=== PATIENT | female | born 1945 | race Caucasian/White ===

== ENCOUNTER 2018-10-10 14:15 | Inpatient (IN) | payer OTHER, BC ==
[2018-10-10] MEDS ORDERED: SODIUM CHLORIDE 1,000 ML IV ONE (15:05)
[2018-10-10 15:08] VITALS: BMI 38.0
--- NOTE | 2018-10-10 15:53 | PDOC ---
Documentation entered by Rahul Nath SCRIBE, acting as scribe for Hermilo Matos MD. Hermilo Matos MD: This documentation has been prepared by the staciaePortillo Elijah, SCRIBE, under my direction and personally reviewed by me in its entirety. I confirm that the documentation accurately reflects all work, treatment, procedures, and medical decision making performed by me. History of Present Illness - General Chief Complaint: Lightheaded Stated Complaint: DIZZY, SOB, FACE FLUSHING, FAINTING, INCONTINENCE Time Seen by Provider: 10/10/18 14:37 History Source: Patient Exam Limitations: No Limitations - History of Present Illness Initial Comments: 10/10/18 15:17 Patient is a 73 year old female with a significant past medical history of Gout , Arthritis, Hypothyroidism, Irritable Bowel movement, AFIB (Eliquis), HTN who presents to the ED with Syncope. Pt reports an episode of syncope this morning when she got up, flight lightheaded, felt a trickle of urine, felt dizzy/ hot, diaphoretic, and syncopized this morning as well as last wednesday. Pt denies any associated preceding headache, cp, sob, abd pain, back pain, neck pain. She notes on Wed, she struck her back on the corner of a table and caused a bruise/ abrasion on her R back. Pt currently feels improved but feels generally weak. Pt denies any blood per rectum, melena, headache, cp, abd pain, f/c, cough, vision changes, palpitations, diarrhea, focal weakness. Allergies: Gluten, Sulfa, Epinephrine PCP: Dr. Mackay Cardiologists: Dr. Kaye Past History - Past Medical History Allergies/Adverse Reactions: Allergies Allergy/AdvReac Type Severity Reaction Status Date / Time gluten Allergy Unknown Verified 10/10/18 15:00 Sulfa (Sulfonamide Allergy Unknown Verified 10/10/18 15:00 Antibiotics) epinephrine AdvReac Mild Verified 10/10/18 15:00 Home Medications: Ambulatory Orders Amlodipine Besylate 5 mg PO DAILY 10/10/18 Apixaban [Eliquis] 5 mg PO BID 10/10/18 Clonidine Patch [Catapres Tts Patch -] 0.3 mg TD WEEKLY 10/10/18 Lisinopril [Prinivil -] 40 mg PO DAILY 10/10/18 Torsemide [Demadex] 10 mg PO DAILY 10/10/18 Review of Systems - Review of Systems Comments:: 10/10/18 15:17 Constitutional - +genearlized weakness in legs. Pt denies Fever, Chills HEENT: denies vision changes, sore throat Respiratory:+SOB (resolved) Denies cough, hemoptysis Cardiac: +lightheadedness denies chest pain, palpitations, , leg swelling Abd/GI: denies abd pain, nausea, vomiting, blood per rectum, melena, diarrhea : denies dysuria, frequency, discharge Musculskelatal - +back pain skin - denies erythema, rash neurological: denies headache, numbness, focal weakness, tingling, ataxia, weakness hematologic: denies anemia, easy bruising, easy bleeding *Physical Exam - Vital Signs Last Vital Signs Temp Pulse Resp BP Pulse Ox 98.3 F 60 16 150/58 L 100 10/10/18 14:35 10/10/18 14:35 10/10/18 14:35 10/10/18 14:35 10/10/18 14:35 - Physical Exam Comments: 10/10/18 15:05 GENERAL: The patient is awake, alert, and fully oriented, Nontoxic - in no acute distress. HEAD: Normocephalic, atraumatic. EYES: extraocular movements intact, sclera anicteric, conjunctiva clear. ENT: Normal voice, Moist mucous membranes. NECK: Normal range of motion, supple LUNGS: Breath sounds equal, clear to auscultation bilaterally. No wheezes, no rhonchi, no rales. HEART: Regular rate and rhythm, normal S1 and S2 without murmur, rub or gallop. BACK: no midline cervical thoracic or lumbar, moderate tenderness to palpation in the right para lumbar paraspinal region with contusion and superficial abrasion ABDOMEN: Soft, nontender, No guarding, no rebound. No CVA tenderness EXTREMITIES: Normal range of motion, +1 pitting edema bl NEUROLOGICAL: No facial assymetry, Normal speech, moving all 4 extremities spontaneously and symmetrically PSYCH: Normal mood, normal affect. SKIN: Warm, Dry, normal turgor, Heart Score/ECG Review - ECG Impressions Comment:: 10/10/18 15:53 Twelve-lead EKG was performed and reviewed by me. Irregularly irregular rate of [address] wave changes abnormal r wave pogression ED Treatment Course - LABORATORY CBC & Chemistry Diagram: 10/10/18 15:50 10/10/18 15:50 - RADIOLOGY Radiology Studies Ordered: Category Date Time Status CHEST X-RAY PORTABLE* [RAD] Stat Radiology 10/10/18 15:04 Ordered Medical Decision Making - Critical Care Time Total Critical Care Time (minutes): 45 Critical Care Statement: The care of this patient involved high complexity decision making to prevent further life threatening deterioration of the patient 's condition and/or to evaluate & treat vital organ system(s) failure or risk of failure. - Medical Decision Making 10/10/18 15:07 73y F hx of gout, arhthritis, hypothyroidism, afib (on eliquis) htn, presents with recurrent syncope - episodes of feeling lightheaded/nauseaus/sweaty/sob, lasting for seconds, but 3 x associated with syncope without associated preceeding cp, abd pain, back pain, headache, melena/bpr. Currently pt feels generally weak but without other complaints ddx syncpe- anemia, metabolic derangement, arrythmia, acs, vasovagal episode pt placed on order caller will ck labs to r/o anemia, metabolic derangement tropx ekg to screen for acs brandon give fluids will erassess 10/10/18 17:50 the patient's lab work was reviewed noted for leukocytes, BUN/creatinine suggestive of prerenal azotemia - will continue to fluid resuscitate While on the monitor the patient heart rate witnessed to fluctuate into the high 30s and 40s although pt was without complanits lying in bed at this time 10/10/18 18:[address] walton due to concern for sick sinus, recommend transfer to [facility] 10/10/18 18:10 pts clonadine patch removed 10/10/18 18:[address] walton and dr. zazueta will transfer to [facility] Telemetry for further monitoring/workup Case discussed in detail with admitting physician including history, physical exam and ancillary studies. Admitting physician has assumed care for the patient, will follow all pending diagnostics and will complete the evaluation and treatment. *DC/Admit/Observation/Transfer Diagnosis at time of Disposition: Bradycardia Afib Qualifiers: Atrial fibrillation type: persistent Qualified Code(s): I48.1 - Persistent atrial fibrillation Syncope Qualifiers: Syncope type: unspecified Qualified Code(s): R55 - Syncope and collapse - Discharge Dispostion Condition at time of disposition: Good Decision to Admit order: Yes - Referrals Referrals: Veto Mackay MD [Primary Care Provider] - - Patient Instructions - Post Discharge Activity
[2018-10-10 16:18] LABS: HEMATOCRIT 36.9 % (32.4-45.2); HEMOGLOBIN 12.3 GM/dl (10.7-15.3); MCH 34.7 pg (25.7-33.7); MCHC 33.4 g/dl (32.0-36.0); MEAN PLT VOLUME 10.2 fl (7.5-11.1); PLATELET COUNT 174 K/MM3 (134-434); RBC 3.55 M/mm3 (3.60-5.2); RDW 13.5 % (11.6-15.6); WHITE BLOOD COUNT 15.5 K/mm3 (4.0-10.8)
[2018-10-10 16:25] LABS: INR 1.99 (0.82-1.09)
[2018-10-10 16:26] LABS: ALBUMIN 4.2 g/dl (3.4-5.0); BILIRUBIN,TOTAL 1.3 mg/dl (0.2-1); CALCIUM 9.5 mg/dl (8.5-10); CREATININE 1.6 mg/dl (0.55-1.3); POTASSIUM 4.1 mmol/L (3.5-5.1); TOT PROT 6.9 g/dl (6.4-8.2)
[2018-10-10] MEDS ORDERED: ACETAMINOPHEN 325 MG TABLET (FP) PO ONE (16:32)
[2018-10-10] MEDS ORDERED: ACETAMINOPHEN 325 MG TABLET (FP) ONE (16:37)
[2018-10-10 17:07] LABS: PLATELET ESTIMATE ADEQUATE
--- NOTE | 2018-10-10 20:17 | CON.CARD ---
Consult Consult Specialty:: Cardiology Referred by:: Dr. Hermilo Matos Reason for Consultation:: Syncope, afib - History of Present Illness Chief Complaint: Syncope, afib History of Present Illness: Patient is a 73 year old female with a significant past medical history of Gout , Arthritis, Hypothyroidism, Irritable Bowel movement, AFIB on Eliquis, HTN who presents to the ED with Syncope. Pt reports an episode of syncope this morning when she got up, felt lightheaded, bladder incontinece, flushing, diaphoretic, and syncopized this morning as well as last wednesday. Pt denies any associated preceding palpitations, cp, sob, abd pain, back pain, neck pain. She notes on Wed, she struck her back on the corner of a table and caused a bruise/abrasion on her R back. Pt currently feels improved but feels generally weak. Pt denies any blood per rectum, melena, headache, cp, abd pain, f/c, cough, vision changes , palpitations, diarrhea, focal weakness. Noted to be in slow afib 40s. Allergies: Gluten, Sulfa, Epinephrine PCP: Dr. Mackay Cardiologists: Dr. Kaye - History Source History Provided By: Patient Limitations to Obtaining History: No Limitations - Alcohol/Substance Use Hx Alcohol Use: No - Smoking History Smoking history: Never smoked Home Medications - Allergies Allergies/Adverse Reactions: Allergies Allergy/AdvReac Type Severity Reaction Status Date / Time gluten Allergy Unknown Verified 10/10/18 15:00 Sulfa (Sulfonamide Allergy Unknown Verified 10/10/18 15:00 Antibiotics) epinephrine AdvReac Mild Verified 10/10/18 15:00 - Home Medications Home Medications: Ambulatory Orders Amlodipine Besylate 5 mg PO DAILY 10/10/18 Apixaban [Eliquis] 5 mg PO BID 10/10/18 Clonidine Patch [Catapres Tts Patch -] 0.3 mg TD WEEKLY 10/10/18 Lisinopril [Prinivil -] 40 mg PO DAILY 10/10/18 Torsemide [Demadex] 10 mg PO DAILY 10/10/18 Review of Systems - Review of Systems Neurological: reports: Dizziness, Syncope Vital Signs: Vital Signs Temperature 98.3 F 10/10/18 14:35 Pulse Rate 39 L 10/10/18 19:00 Respiratory Rate 17 10/10/18 19:00 Blood Pressure 142/44 L 10/10/18 19:00 O2 Sat by Pulse Oximetry (%) 99 10/10/18 19:00 Constitutional: Yes: No Distress, Calm Neck: Yes: Supple Respiratory: Yes: Regular, Diminished, On Nasal O2 Gastrointestinal: Yes: Normal Bowel Sounds, Soft, Abdomen, Obese Cardiovascular: Yes: Bradycardia, Pulse Irregular JVD: No Carotid Bruit: No Heart Sounds: Yes: S1, S2 Edema: Yes Edema: LLE: 1+, RLE: 1+ - Other Data Labs, Other Data: CBC, BMP 10/10/18 15:50 10/10/18 15:50 INR, PTT INR 1.99 (0.82-1.09) H 10/10/18 15:50 Troponin, BNP 10/10/18 10/10/18 15:50 19:30 Troponin I 0.10 H 0.10 H Troponin, BNP 10/10/18 10/10/18 15:50 19:30 Troponin I 0.10 H 0.10 H Afib @ 51 Tele: Afib 48 Imaging - Results Chest X-ray: Report Reviewed (NAD) X-ray: Report Reviewed (L-S spine: No fracture) Problem List - Problems (1) Diastolic dysfunction Code(s): I51.89 - OTHER ILL-DEFINED HEART DISEASES (2) Hypertensive heart disease Code(s): I11.9 - HYPERTENSIVE HEART DISEASE WITHOUT HEART FAILURE Qualifiers: Heart failure presence: without heart failure Qualified Code(s): I11.9 - Hypertensive heart disease without heart failure (3) Afib Code(s): I48.91 - UNSPECIFIED ATRIAL FIBRILLATION Qualifiers: Atrial fibrillation type: persistent Qualified Code(s): I48.1 - Persistent atrial fibrillation (4) Bradycardia Code(s): R00.1 - BRADYCARDIA, UNSPECIFIED (5) Syncope Code(s): R55 - SYNCOPE AND COLLAPSE Qualifiers: Syncope type: unspecified Qualified Code(s): R55 - Syncope and collapse (6) Chronic anticoagulation Code(s): Z79.01 - 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 Syncope with prodrome, vasovagal vs sick sinus syndrome 2. Persistent afib on Eliquis 3. Hypertensive heart disease 4. Diastolic dysfunction 6. Acute vs chronic kidney injury 7. Demand ischemia 8. Morbid obesity P:1. Agree with d/c Catapres patch and observe HR recovery, continue Norvasc 5 qd, lisinopril 40 qd, Eliquis 5 bid and Demadex 10 qd 2. Echocardiogram to assess ventricular and valve fxn, trend trops 3. human resources support specialist/Holter to r/o pause 4. Obtain records from [facility], Dr. Rockwell's office for review 5. Thank you for consultative opportunity
[2018-10-10] MEDS: APIXABAN 5 MG TABLET PO SCH (23:15)
--- NOTE | 2018-10-10 23:52 | HP ---
Admitting History and Physical - Primary Care Physician PCP: Santos Soria - Admission History of Present Illness: 73 year old female with a significant past medical history of Gout, Arthritis, Hypothyroidism, Irritable Bowel movement, AFIB (Eliquis), HTN who presents to the ED with Syncope. Pt reports an episode of syncope this morning when she got up, flight lightheaded, felt a trickle of urine, felt dizzy/ hot, diaphoretic, and syncopized this morning as well as last wednesday. Pt denies any associated preceding headache, cp, sob, abd pain, back pain, neck pain. She notes on Wed, she struck her back on the corner of a table and caused a bruise/abrasion on her R back. Pt currently feels improved but feels generally weak. Pt denies any blood per rectum, melena, headache, cp, abd pain, f/c, cough, vision changes, palpitations, diarrhea, focal weakness. - Past Medical History Cardiovascular: Yes: AFIB, HTN Gastrointestinal: Yes: Irritable Bowel Disease Rheumatology: Yes: Gout - Smoking History Smoking history: Never smoked - Alcohol/Substance Use Hx Alcohol Use: No Home Medications - Allergies Allergies/Adverse Reactions: Allergies Allergy/AdvReac Type Severity Reaction Status Date / Time gluten Allergy Unknown Verified 10/10/18 15:00 Sulfa (Sulfonamide Allergy Unknown Verified 10/10/18 15:00 Antibiotics) epinephrine AdvReac Mild Verified 10/10/18 15:00 - Home Medications Home Medications: Ambulatory Orders Amlodipine Besylate 5 mg PO DAILY 10/10/18 Apixaban [Eliquis] 5 mg PO BID 10/10/18 Lisinopril [Prinivil -] 40 mg PO DAILY 10/10/18 Torsemide [Demadex -] 10 mg PO DAILY 10/10/18 Colchicine [Colcrys] 0.6 mg PO DAILY #14 cap 10/13/18 Physical Examination Vital Signs: Vital Signs Temperature 98.0 F 10/10/18 21:01 Pulse Rate 45 L 10/10/18 21:01 Respiratory Rate 17 10/10/18 21:01 Blood Pressure 144/52 L 10/10/18 21:01 O2 Sat by Pulse Oximetry (%) 98 10/10/18 20:00 Constitutional: Yes: No Distress HENT: Yes: Atraumatic Neck: Yes: Supple Cardiovascular: Yes: Regular Rate and Rhythm Respiratory: Yes: CTA Bilaterally Gastrointestinal: Yes: Normal Bowel Sounds Extremities: Yes: WNL Edema: No Neurological: Yes: Alert, Oriented Labs: CBC, BMP 10/10/18 15:50 10/10/18 15:50 Problem List - Problems (1) Afib Assessment/Plan: on meds monitor cardiology on board on AC Code(s): I48.91 - UNSPECIFIED ATRIAL FIBRILLATION Qualifiers: Atrial fibrillation type: persistent Qualified Code(s): I48.1 - Persistent atrial fibrillation (2) Bradycardia Assessment/Plan: monitor Code(s): R00.1 - BRADYCARDIA, UNSPECIFIED (3) Chronic anticoagulation Code(s): Z79.01 - 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 (CURRENT) USE OF ANTICOAGULANTS (4) Diastolic dysfunction Code(s): I51.89 - OTHER ILL-DEFINED HEART DISEASES (5) Hypertensive heart disease Code(s): I11.9 - HYPERTENSIVE HEART DISEASE WITHOUT HEART FAILURE Qualifiers: Heart failure presence: without heart failure Qualified Code(s): I11.9 - Hypertensive heart disease without heart failure (6) Permanent atrial fibrillation Code(s): I48.2 - CHRONIC ATRIAL FIBRILLATION (7) Syncope Code(s): R55 - SYNCOPE AND COLLAPSE Qualifiers: Syncope type: unspecified Qualified Code(s): R55 - Syncope and collapse (8) HTN (hypertension) Assessment/Plan: onmeds bp high monitor Code(s): I10 - ESSENTIAL (PRIMARY) HYPERTENSION (9) UNIQUE (acute kidney injury) Assessment/Plan: hold diuretic renal consult Code(s): N17.9 - ACUTE KIDNEY FAILURE, UNSPECIFIED (10) UTI (urinary tract infection) Assessment/Plan: cxs pending Code(s): N39.0 - URINARY TRACT INFECTION, SITE NOT SPECIFIED Assessment/Plan Laboratory Tests 10/10/18 10/10/18 10/10/18 15:50 15:50 15:50 WBC 15.5 H RBC 3.55 L Hgb 12.3 Hct 36.9 MCV 104.0 H MCH 34.7 H MCHC 33.4 RDW 13.5 Plt Count 174 MPV 10.2 Absolute Neuts (auto) 14.2 Neutrophils % No Result Required. Neutrophils % (Manual) 89.0 H Lymphocytes % No Result Required. Lymphocytes % (Manual) 7.0 L Monocytes % Monocytes % (Manual) 4 Eosinophils % Basophils % Nucleated RBC % Platelet Estimate Adequate PT with INR INR Sodium 139 Potassium 4.1 Chloride 104 Carbon Dioxide 23 Anion Gap 12 BUN 43.0 H Creatinine 1.6 H Est GFR (CKD-EPI)AfAm 36.67 Est GFR (CKD-EPI)NonAf 31.64 Random Glucose 155 H Calcium 9.5 Total Bilirubin 1.3 H AST 70 H ALT 61 Alkaline Phosphatase 78 Creatine Kinase 68 Troponin I 0.10 H Total Protein 6.9 Albumin 4.2 Urine Color Urine Appearance Urine pH Ur Specific [place] Urine Protein Urine Glucose (UA) Urine Ketones Urine Blood Urine Nitrite Urine Bilirubin Urine Urobilinogen Ur Leukocyte Esterase Urine WBC (Auto) Urine RBC (Auto) Urine Casts (Auto) U Epithel Cells (Auto) Urine Bacteria (Auto) 10/10/18 10/10/18 10/11/18 15:50 19:30 01:00 WBC RBC Hgb Hct MCV MCH MCHC RDW Plt Count MPV Absolute Neuts (auto) Neutrophils % Neutrophils % (Manual) Lymphocytes % Lymphocytes % (Manual) Monocytes % Monocytes % (Manual) Eosinophils % Basophils % Nucleated RBC % Platelet Estimate PT with INR 22.0 H INR 1.99 H Sodium Potassium Chloride Carbon Dioxide Anion Gap BUN Creatinine Est GFR (CKD-EPI)AfAm Est GFR (CKD-EPI)NonAf Random Glucose Calcium Total Bilirubin AST ALT Alkaline Phosphatase Creatine Kinase 99 Troponin I 0.10 H 0.11 H Total Protein Albumin Urine Color Urine Appearance Urine pH Ur Specific [place] Urine Protein Urine Glucose (UA) Urine Ketones Urine Blood Urine Nitrite Urine Bilirubin Urine Urobilinogen Ur Leukocyte Esterase Urine WBC (Auto) Urine RBC (Auto) Urine Casts (Auto) U Epithel Cells (Auto) Urine Bacteria (Auto) 10/11/18 10/11/18 10/11/18 06:00 06:00 06:00 WBC 10.7 H RBC 3.07 L Hgb 10.8 Hct 31.5 L MCV 102.5 H MCH 35.3 H MCHC 34.4 RDW 13.8 Plt Count 159 MPV 10.7 Absolute Neuts (auto) 8.0 Neutrophils % 74.9 Neutrophils % (Manual) Lymphocytes % 15.0 Lymphocytes % (Manual) Monocytes % 9.6 Monocytes % (Manual) Eosinophils % 0.1 Basophils % 0.4 Nucleated RBC % 0 Platelet Estimate PT with INR INR Sodium Cancelled Potassium Cancelled Chloride Cancelled Carbon Dioxide Cancelled Anion Gap Cancelled BUN Cancelled Creatinine Cancelled Est GFR (CKD-EPI)AfAm Cancelled Est GFR (CKD-EPI)NonAf Cancelled Random Glucose Cancelled Calcium Cancelled Total Bilirubin AST ALT Alkaline Phosphatase Creatine Kinase 86 Troponin I 0.11 H Cancelled Total Protein Albumin Urine Color Urine Appearance Urine pH Ur Specific [place] Urine Protein Urine Glucose (UA) Urine Ketones Urine Blood Urine Nitrite Urine Bilirubin Urine Urobilinogen Ur Leukocyte Esterase Urine WBC (Auto) Urine RBC (Auto) Urine Casts (Auto) U Epithel Cells (Auto) Urine Bacteria (Auto) 10/11/18 10/11/18 06:00 13:13 WBC RBC Hgb Hct MCV MCH MCHC RDW Plt Count MPV Absolute Neuts (auto) Neutrophils % Neutrophils % (Manual) Lymphocytes % Lymphocytes % (Manual) Monocytes % Monocytes % (Manual) Eosinophils % Basophils % Nucleated RBC % Platelet Estimate PT with INR INR Sodium 143 Potassium 4.0 Chloride 110 H Carbon Dioxide 27 Anion Gap 6 L BUN 38.8 H Creatinine 1.5 H Est GFR (CKD-EPI)AfAm 39.64 Est GFR (CKD-EPI)NonAf 34.21 Random Glucose 105 Calcium 9.0 Total Bilirubin 0.8 AST 36 ALT 51 Alkaline Phosphatase 73 Creatine Kinase Troponin I Total Protein 5.8 L Albumin 3.4 Urine Color Yellow Urine Appearance Cloudy Urine pH 5.0 Ur Specific [place] 1.021 Urine Protein Negative Urine Glucose (UA) Negative Urine Ketones Negative Urine Blood Negative Urine Nitrite Negative Urine Bilirubin Negative Urine Urobilinogen 1.0 Ur Leukocyte Esterase 3+ H Urine WBC (Auto) 78 Urine RBC (Auto) 2 Urine Casts (Auto) 5 U Epithel Cells (Auto) 6.7 Urine Bacteria (Auto) 899.4 Active Medications Generic Name Dose Route Start Last Admin Trade Name Freq PRN Reason Stop Dose Admin Acetaminophen 650 mg 10/11/18 12:34 10/11/18 12:37 Tylenol - PO 650 mg Q6H PRN Administration PAIN Amlodipine Besylate 5 mg 10/11/18 10:00 10/11/18 10:36 Norvasc - PO 5 mg DAILY BILLY Administration Apixaban 5 mg 10/10/18 22:00 10/11/18 10:35 Eliquis - PO 5 mg BID BILLY Administration Lisinopril 40 mg 10/11/18 10:00 10/11/18 10:35 Prinivil PO 40 mg DAILY BILLY Administration
[2018-10-11 07:01] LABS: BASO % 0.4 % (0-2.0); EOS % 0.1 % (0-4.5); HEMATOCRIT 31.5 % (32.4-45.2); HEMOGLOBIN 10.8 GM/dL (10.7-15.3); MCH 35.3 pg (25.7-33.7); MCHC 34.4 g/dl (32.0-36.0); MEAN CELL VOLUME 102.5 fl (80-96); MEAN PLT VOLUME 10.7 fl (7.5-11.1); MONO % 9.6 % (3.8-10.2); NEUT % 74.9 % (42.8-82.8); RBC 3.07 M/mm3 (3.60-5.2); RDW 13.8 % (11.6-15.6); WHITE BLOOD COUNT 10.7 K/mm3 (4.0-10.0)
[2018-10-11 07:37] LABS: ALBUMIN 3.4 g/dl (3.4-5.0); BILIRUBIN,TOTAL 0.8 mg/dL (0.2-1); BLOOD UREA NITROGEN 38.8 mg/dL (7-18); CREATININE 1.5 mg/dL (0.55-1.3); TOT PROT 5.8 g/dl (6.4-8.2)
[2018-10-11 08:08] LABS: PLATELET COUNT 159 K/MM3 (134-434)
--- NOTE | 2018-10-11 09:53 | PN ---
Progress Note, Physician Chief Complaint: Events noted Not in distress History of Present Illness: Patient was seen and examined. Awake and alert. Chart was reviewed Denies chest pain, SOB or palpitations Monitor shows AF with slow HR at 30's - Current Medication List Current Medications: Active Medications Amlodipine Besylate (Norvasc -) 5 mg PO DAILY [facility] Apixaban (Eliquis -) 5 mg PO BID [facility] Last Admin: 10/10/18 23:15 Dose: 5 mg Lisinopril (Prinivil) 40 mg PO DAILY [facility] - Objective Vital Signs: Vital Signs Temperature 97.7 F 10/11/18 06:00 Pulse Rate 30 L 10/11/18 06:00 Respiratory Rate 18 10/11/18 06:00 Blood Pressure 134/57 L 10/11/18 06:00 O2 Sat by Pulse Oximetry (%) 100 10/10/18 22:30 Eyes: Yes: PERRL HENT: Yes: Atraumatic Neck: Yes: Supple Cardiovascular: Yes: Bradycardia, Pulse Irregular, S1, S2 Respiratory: Yes: CTA Bilaterally Gastrointestinal: Yes: Normal Bowel Sounds, Soft. No: Tenderness Edema: Yes Edema: LLE: Trace, RLE: Trace Additional Findings/Remarks: - Review of Systems Constitutional: denies: Chills, Fever Cardiovascular: denies: Chest Pain, Palpitations, Shortness of Breath Respiratory: denies: Cough, Hemoptysis, Orthopnea, PND Gastrointestinal: denies: Abdominal Pain, Constipation, Diarrhea, Melena, Nausea , Rectal Bleeding, Vomiting Musculoskeletal: denies: Back Pain, Joint Pain Neurological: denies: Dizziness, Headache, Seizure, (+) Syncope Labs: CBC, BMP 10/11/18 06:00 INR, PTT INR 1.99 (0.82-1.09) H 10/10/18 15:50 Problem List - Problems (1) Permanent atrial fibrillation Code(s): I48.2 - CHRONIC ATRIAL FIBRILLATION (2) Bradycardia Code(s): R00.1 - BRADYCARDIA, UNSPECIFIED (3) Diastolic dysfunction Code(s): I51.89 - OTHER ILL-DEFINED HEART DISEASES (4) Hypertensive heart disease Code(s): I11.9 - HYPERTENSIVE HEART DISEASE WITHOUT HEART FAILURE Qualifiers: Heart failure presence: without heart failure Qualified Code(s): I11.9 - Hypertensive heart disease without heart failure (5) Syncope Code(s): R55 - SYNCOPE AND COLLAPSE Qualifiers: Syncope type: unspecified Qualified Code(s): R55 - Syncope and collapse Assessment/Plan 1. Syncope, vasovagal vs sick sinus syndrome 2. Persistent AF on Eliquis with slow HR 3. Hypertensive heart disease 4. Diastolic dysfunction 6. Acute on chronic kidney injury 7. Demand ischemia 8. Morbid obesity PLAN: 1. Catapress has been stopped as it may have caused this marked bradycardia. Continue Norvasc 5 mg QD, Lisinopril 40 mg QD, Eliquis 5 mg BID and Demadex 10 mg QD 2. Echocardiography to assess LV/RV and valvular function. 3. Trend troponin 4. director of patient care and Holter 5. Obtain records from [facility] 6. Further plans are to follow. If sick sinus syndrome is the cause, she may require a permanent pacemaker Lockstitch Machine Operator: Ralph Kaye MD ([facility]) Chava Diaz MD
[2018-10-11] MEDS ORDERED: TORSEMIDE 10 MG TABLET PO SCH (10:00)
[2018-10-11] MEDS: LISINOPRIL 20 MG TABLET (FP) PO SCH (10:35)
[2018-10-11] MEDS: APIXABAN 5 MG TABLET PO SCH ×2 (10:35→21:46)
[2018-10-11] MEDS: amLODIPine BESYLATE 5 MG TABLET (FP) PO SCH (10:36)
[2018-10-11] MEDS: ACETAMINOPHEN 325 MG TABLET (FP) PO PRN ×2 (12:37→21:45)
[2018-10-11 14:20] LABS: EPI CELLS 6.7 /HPF (0-5/HPF); HYALINE CASTS 5 /lpf (0-8); URINE APPEARANCE CLOUDY; URINE BACTERIA 899.4 /hpf (NEGATIVE); URINE BILIRUBIN NEGATIVE (NEGATIVE); URINE COLOR YELLOW; URINE GLUCOSE (UA) NEGATIVE (NEGATIVE); URINE KETONE NEGATIVE (NEGATIVE); URINE LEUK ESTERASE 3+ (NEGATIVE); URINE NITRITE NEGATIVE (NEGATIVE); URINE PROTEIN NEGATIVE (NEGATIVE); URINE RBC 2 /hpf (0-4); URINE WBC 78 /hpf (0-5)
--- NOTE | 2018-10-11 14:45 | EKG ---
Test Reason : Blood Pressure : / mmHG Vent. Rate : 051 BPM Atrial Rate : 060 BPM P-R Int : 000 ms QRS Dur : 086 ms QT Int : 406 ms P-R-T Axes : 000 -21 098 degrees QTc Int : 374 ms POOR DATA QUALITY, INTERPRETATION MAY BE ADVERSELY AFFECTED ATRIAL FIBRILLATION WITH SLOW VENTRICULAR RESPONSE WITH A COMPETING JUNCTIONAL PACEMAKER MINIMAL VOLTAGE CRITERIA FOR LVH, MAY BE NORMAL VARIANT SEPTAL INFARCT , AGE UNDETERMINED ABNORMAL ECG NO PREVIOUS ECGS AVAILABLE Confirmed by Dakotah Segovia MD ([id number]) on 10/11/2018 2:44:37 PM Referred By: Confirmed By:Dakotah Segovia MD
--- NOTE | 2018-10-11 15:20 | CON.ID ---
Consult - Past Medical History ...: No - Alcohol/Substance Use Hx Alcohol Use: No - Smoking History Smoking history: Never smoked Have you smoked in the past 12 months: No Home Medications - Allergies Allergies/Adverse Reactions: Allergies Allergy/AdvReac Type Severity Reaction Status Date / Time gluten Allergy Unknown Verified 10/10/18 15:00 Sulfa (Sulfonamide Allergy Unknown Verified 10/10/18 15:00 Antibiotics) epinephrine AdvReac Mild Verified 10/10/18 15:00 - Home Medications Home Medications: Ambulatory Orders Amlodipine Besylate 5 mg PO DAILY 10/10/18 Apixaban [Eliquis] 5 mg PO BID 10/10/18 Clonidine Patch [Catapres Tts Patch -] 0.3 mg TD WEEKLY 10/10/18 Lisinopril [Prinivil -] 40 mg PO DAILY 10/10/18 Torsemide [Demadex] 10 mg PO DAILY 10/10/18 Physical Exam Vital Signs: Vital Signs Temperature 97.7 F 10/11/18 06:00 Pulse Rate 33 L 10/11/18 11:00 Respiratory Rate 16 10/11/18 11:00 Blood Pressure 139/55 L 10/11/18 11:00 O2 Sat by Pulse Oximetry (%) 99 10/11/18 09:00 Labs: CBC, BMP 10/11/18 06:00 10/11/18 06:00
--- NOTE | 2018-10-11 18:24 | PN ---
Progress Note, Physician - Current Medication List Current Medications: Active Medications Acetaminophen (Tylenol -) 650 mg PO Q6H PRN PRN Reason: PAIN Last Admin: 10/11/18 12:37 Dose: 650 mg Amlodipine Besylate (Norvasc -) 5 mg PO DAILY [facility] Last Admin: 10/11/18 10:36 Dose: 5 mg Apixaban (Eliquis -) 5 mg PO BID [facility] Last Admin: 10/11/18 10:35 Dose: 5 mg Lisinopril (Prinivil) 40 mg PO DAILY [facility] Last Admin: 10/11/18 10:35 Dose: 40 mg - Objective Vital Signs: Vital Signs Temperature 98.2 F 10/11/18 14:00 Pulse Rate 42 L 10/11/18 14:00 Respiratory Rate 16 10/11/18 11:00 Blood Pressure 157/64 10/11/18 14:00 O2 Sat by Pulse Oximetry (%) 99 10/11/18 09:00 Constitutional: Yes: No Distress HENT: Yes: Atraumatic Neck: Yes: Supple Cardiovascular: Yes: Regular Rate and Rhythm Respiratory: Yes: CTA Bilaterally Gastrointestinal: Yes: Normal Bowel Sounds Extremities: Yes: WNL Edema: No Neurological: Yes: Alert, Oriented Labs: CBC, BMP 10/11/18 06:00 10/11/18 06:00 INR, PTT INR 1.99 (0.82-1.09) H 10/10/18 15:50 Problem List - Problems (1) Afib Assessment/Plan: on meds monitor cardiology on board on Code(s): I48.91 - UNSPECIFIED ATRIAL FIBRILLATION Qualifiers: Atrial fibrillation type: persistent Qualified Code(s): I48.1 - Persistent atrial fibrillation (2) Bradycardia Assessment/Plan: monitor Code(s): R00.1 - BRADYCARDIA, UNSPECIFIED (3) Chronic anticoagulation Code(s): Z79.01 - FPC (CURRENT) USE OF ANTICOAGULANTS (4) Diastolic dysfunction Code(s): I51.89 - OTHER ILL-DEFINED HEART DISEASES (5) Hypertensive heart disease Code(s): I11.9 - HYPERTENSIVE HEART DISEASE WITHOUT HEART FAILURE Qualifiers: Heart failure presence: without heart failure Qualified Code(s): I11.9 - Hypertensive heart disease without heart failure (6) Syncope Code(s): R55 - SYNCOPE AND COLLAPSE Qualifiers: Syncope type: unspecified Qualified Code(s): R55 - Syncope and collapse (7) UTI (urinary tract infection) Assessment/Plan: on abx cxs pending Code(s): N39.0 - URINARY TRACT INFECTION, SITE NOT SPECIFIED
--- NOTE | 2018-10-12 10:07 | PN ---
Progress Note, Physician History of Present Illness: Denies recurrent near or true syncope. Allergies: Gluten, Sulfa, Epinephrine PCP: Dr. Mackay Cardiologists: Dr. Kaye - Current Medication List Current Medications: Active Medications Acetaminophen (Tylenol -) 650 mg PO Q6H PRN PRN Reason: PAIN Last Admin: 10/11/18 21:45 Dose: 650 mg Amlodipine Besylate (Norvasc -) 5 mg PO DAILY [facility] Last Admin: 10/11/18 10:36 Dose: 5 mg Apixaban (Eliquis -) 5 mg PO BID [facility] Last Admin: 10/11/18 21:46 Dose: 5 mg Lisinopril (Prinivil) 40 mg PO DAILY [facility] Last Admin: 10/11/18 10:35 Dose: 40 mg - Objective Vital Signs: Vital Signs Temperature 98.0 F 10/12/18 06:00 Pulse Rate 48 L 10/12/18 06:00 Respiratory Rate 18 10/12/18 06:00 Blood Pressure 174/79 H 10/12/18 06:00 O2 Sat by Pulse Oximetry (%) 97 10/11/18 21:00 Constitutional: Yes: No Distress, Calm Neck: Yes: Supple Cardiovascular: Yes: Pulse Irregular Respiratory: Yes: Regular, Diminished Gastrointestinal: Yes: Soft, Hypoactive Bowel Sounds Edema: No Labs: CBC, BMP 10/11/18 06:00 10/11/18 06:00 INR, PTT INR 1.99 (0.82-1.09) H 10/10/18 15:50 - ....Imaging EKG: Report Reviewed (Tele: Rate-controlled afib, slow ventricular response only seen overnight) Problem List - Problems (1) Diastolic dysfunction Code(s): I51.89 - OTHER ILL-DEFINED HEART DISEASES (2) Hypertensive heart disease Code(s): I11.9 - HYPERTENSIVE HEART DISEASE WITHOUT HEART FAILURE Qualifiers: Heart failure presence: without heart failure Qualified Code(s): I11.9 - Hypertensive heart disease without heart failure (3) Afib Code(s): I48.91 - UNSPECIFIED ATRIAL FIBRILLATION Qualifiers: Atrial fibrillation type: persistent Qualified Code(s): I48.1 - Persistent atrial fibrillation (4) Bradycardia Code(s): R00.1 - BRADYCARDIA, UNSPECIFIED (5) Syncope Code(s): R55 - SYNCOPE AND COLLAPSE Qualifiers: Syncope type: unspecified Qualified Code(s): R55 - Syncope and collapse (6) Chronic anticoagulation Code(s): Z79.01 - GROUP HOME (CURRENT) USE OF ANTICOAGULANTS Assessment/Plan 01/19/2018 Echo: Normal LV and RV size and fxn LVEF 65%, normal biatrial sizes, mild TR, tr MR 01/19/2018 ETT: Submaximal HR increased 65-86 SBP 157-194, no chest pain or ST changes 1. Syncope, vasovagal vs sick sinus syndrome 2. Persistent AF on Eliquis with improved HR response 3. Hypertensive heart disease 4. Diastolic dysfunction 6. Acute on chronic kidney injury 7. Demand ischemia 8. Morbid obesity, OSAS suspect PLAN: 1. Catapress has been stopped as it may have caused marked bradycardia. Continue Norvasc 5 mg QD, Lisinopril 40 mg QD, Eliquis 5 mg BID and resume Demadex 10 mg QD once renal fxn at baseline, observe HR recovery off AV martita blockers 2. F/u echocardiography to assess LV/RV and valvular function. 3. Troponin have plateaued 4. athletic monitor and Holter monitor pending 5. Reviewed records from [facility], [facility] as outpatient Manager Military: Ralph Kaye MD ([facility])
[2018-10-12] MEDS: LISINOPRIL 20 MG TABLET (FP) PO SCH (10:24)
[2018-10-12] MEDS: amLODIPine BESYLATE 5 MG TABLET (FP) PO SCH (10:24)
[2018-10-12] MEDS: APIXABAN 5 MG TABLET PO SCH ×2 (10:24→21:38)
--- NOTE | 2018-10-12 12:05 | CONSULT ---
Consult Consult Specialty:: Nephrology Reason for Consultation:: WILIAN - History of Present Illness Chief Complaint: syncope History of Present Illness: Pt is a 73 year old female with pmhx of arthritis, gout, a-fib, htn, IBS, htn and hypothyroidism who presents to the ER with syncope. She was found to be in WILIAN and I was called to evaluate her. She denies shortness of breath. She was on torsemide as outpt for lower ext edema. She denies nsaid use. She is awake and alert. She denies hx of ckd. She denies dysuria or hematuria. She denies shortness of breath or palpitations. - History Source History Provided By: Patient - Past Medical History Cardio/Vascular: Yes: AFIB, HTN Gastrointestinal: Yes: Irritable Bowel Disease ...: No Rheumatology: Yes: Gout - Alcohol/Substance Use Hx Alcohol Use: No - Smoking History Smoking history: Never smoked Have you smoked in the past 12 months: No Home Medications - Allergies Allergies/Adverse Reactions: Allergies Allergy/AdvReac Type Severity Reaction Status Date / Time gluten Allergy Unknown Verified 10/10/18 15:00 Sulfa (Sulfonamide Allergy Unknown Verified 10/10/18 15:00 Antibiotics) epinephrine AdvReac Mild Verified 10/10/18 15:00 - Home Medications Home Medications: Ambulatory Orders Amlodipine Besylate 5 mg PO DAILY 10/10/18 Apixaban [Eliquis] 5 mg PO BID 10/10/18 Clonidine Patch [Catapres Tts Patch -] 0.3 mg TD WEEKLY 10/10/18 Lisinopril [Prinivil -] 40 mg PO DAILY 10/10/18 Torsemide [Demadex] 10 mg PO DAILY 10/10/18 Family Disease History - Family Disease History Family History: Denies Review of Systems - Review of Systems Constitutional: reports: Malaise Eyes: reports: No Symptoms HENT: reports: No Symptoms Neck: reports: No Symptoms Cardiovascular: reports: Edema. denies: Palpitations, Shortness of Breath Respiratory: denies: SOB, SOB on Exertion Gastrointestinal: reports: No Symptoms Genitourinary: reports: No Symptoms Musculoskeletal: reports: No Symptoms Integumentary: reports: No Symptoms Neurological: reports: Syncope Endocrine: reports: No Symptoms Hematology/Lymphatic: reports: No Symptoms Psychiatric: reports: No Symptoms Physical Exam Vital Signs: Vital Signs Temperature 98.0 F 10/12/18 06:00 Pulse Rate 48 L 10/12/18 06:00 Respiratory Rate 18 10/12/18 06:00 Blood Pressure 174/79 H 10/12/18 06:00 O2 Sat by Pulse Oximetry (%) 97 10/11/18 21:00 Constitutional: Yes: Calm Eyes: Yes: Conjunctiva Clear HENT: Yes: Atraumatic Neck: Yes: Supple Cardiovascular: Yes: S1, S2 Respiratory: Yes: CTA Bilaterally Gastrointestinal: Yes: Soft, Abdomen, Obese Renal/: Yes: WNL Extremities: Yes: WNL Edema: LLE: Trace, RLE: Trace Neurological: Yes: Oriented Psychiatric: Yes: Oriented Labs: CBC, BMP 10/11/18 06:00 10/11/18 06:00 Microbiology Laboratory Tests 10/10/18 10/10/18 10/11/18 15:50 15:50 06:00 WBC 15.5 H 10.7 H Hgb 12.3 10.8 Creatinine 1.6 H Urine Protein Urine Blood 10/11/18 10/11/18 06:00 13:13 WBC Hgb Creatinine 1.5 H Urine Protein Negative Urine Blood Negative Imaging - Results Chest X-ray: Report Reviewed Problem List - Problems (1) WILIAN (acute kidney injury) Code(s): N17.9 - ACUTE KIDNEY FAILURE, UNSPECIFIED (2) Afib Code(s): I48.91 - UNSPECIFIED ATRIAL FIBRILLATION Qualifiers: Atrial fibrillation type: persistent Qualified Code(s): I48.1 - Persistent atrial fibrillation (3) Hypertensive heart disease Code(s): I11.9 - HYPERTENSIVE HEART DISEASE WITHOUT HEART FAILURE Qualifiers: Heart failure presence: without heart failure Qualified Code(s): I11.9 - Hypertensive heart disease without heart failure Assessment/Plan Current Medications Generic Name Dose Route Start Last Admin Trade Name Freq PRN Reason Stop Dose Admin Acetaminophen 650 mg 10/11/18 12:34 10/11/18 21:45 Tylenol - PO 650 mg Q6H PRN Administration PAIN Amlodipine Besylate 5 mg 10/11/18 10:00 10/12/18 10:24 Norvasc - PO 5 mg DAILY [facility] Administration Apixaban 5 mg 10/10/18 22:00 10/12/18 10:24 Eliquis - PO 5 mg BID [facility] Administration Lisinopril 40 mg 10/11/18 10:00 10/12/18 10:24 Prinivil PO 40 mg DAILY [facility] Administration Impression 1. WILIAN 2. HTN 3. syncope 4. a-fib 5. arthritis Plan - check renal ultrasound - ua neg for blood or protein - repeat labs in am - cont radha for now - will need outpt labs to compare embedded software engineer - wilian may be secondary to hemodynamics - check urine lytes and urine embedded software engineer
--- NOTE | 2018-10-12 12:26 | ECHO ---
Name: ЕЛЕНА MERCADO Exam:Adult Echocardiogram Study Date: 10/12/2018 09:10 AM Age: 73 yrs Reason For Study: syncope, a fib Height: 68 in Weight: 250 lb BSA: 2.2 m2 MMode/2D Measurements & Calculations RVDd: 3.8 cm Ao root diam: 3.3 cm IVSd: 0.99 cm LA dimension: 4.9 cm LVIDd: 5.0 cm ACS: 1.7 cm LVIDs: 2.9 cm LVPWd: 0.92 cm IVSs: 1.2 cm LVPWs: 1.5 cm EDV(Teich): 119.6 ml ESV(Teich): 33.1 ml Doppler Measurements & Calculations MV E max hardeep: 102.9 cm/sec Ao V2 max: 176.3 cm/sec Ao max P.4 mmHg Ao V2 mean: 114.6 cm/sec Ao mean P.2 mmHg Ao V2 VTI: 37.5 cm TR max hardeep: 304.1 cm/sec PA V2 max: 193.2 cm/sec TR max P.1 mmHg PA max P.0 mmHg RVSP(TR): 47.1 mmHg PA V2 mean: 104.3 cm/sec PA mean P.5 mmHg PA V2 VTI: 40.0 cm PI end-d hardeep: 147.0 cm/sec Med Peak E' Hardeep: 6.7 cm/sec Med E/e': 15.4 Lat Peak E' Hardeep: 11.3 cm/sec Lat E/e': 9.1 RAP systole: 10.0 mmHg Procedure A two-dimensional transthoracic echocardiogram with color flow and Doppler was performed. Left Ventricle The left ventricular size, thickness and function are normal. The left ventricle is not well visualiz ed. The left ventricular ejection fraction is normal. Regional wall motion abnormalities cannot be excluded d ue to limited visualization. Right Ventricle The right ventricle is normal in size and function. The right ventricle is not well visualized. Atria The left atrium is moderately dilated. The right atrium is moderately dilated. Mitral Valve There is mild mitral valve thickening. There is no mitral valve stenosis. There is mild to moderate m itral regurgitation. Tricuspid Valve There is mild tricuspid valve thickening. There is no tricuspid stenosis. There is mild tricuspid regurgitation. Right ventricular systolic pressure is elevated at 40-50mmHg. Aortic Valve The aortic valve is not well visualized. No hemodynamically significant valvular aortic stenosis. No aortic regurgitation is present. Pulmonic Valve The pulmonic valve is not well visualized. There is no pulmonic valvular stenosis. Mild pulmonic valv ular regurgitation. Great Vessels The aortic root is normal size. Pericardium/Pleura There is no pericardial effusion. Interpretation Summary The left ventricular size, thickness and function are normal The left ventricular ejection fraction is normal. The left atrium is moderately dilated. The right atrium is moderately dilated. There is mild to moderate mitral regurgitation. There is mild tricuspid regurgitation. Right ventricular systolic pressure is elevated at 40-50mmHg. Regional wall motion abnormalities cannot be excluded due to limited visualization. The left ventricle is not well visualized. The right ventricle is not well visualized. The aortic valve is not well visualized. MD Wu Lancaster 10/12/2018 12:26 PM
--- NOTE | 2018-10-12 14:41 | PN ---
Progress Note, Physician History of Present Illness: patient stable no new issues - Current Medication List Current Medications: Active Medications Acetaminophen (Tylenol -) 650 mg PO Q6H PRN PRN Reason: PAIN Last Admin: 10/11/18 21:45 Dose: 650 mg Amlodipine Besylate (Norvasc -) 5 mg PO DAILY [facility] Last Admin: 10/12/18 10:24 Dose: 5 mg Apixaban (Eliquis -) 5 mg PO BID [facility] Last Admin: 10/12/18 10:24 Dose: 5 mg Lisinopril (Prinivil) 40 mg PO DAILY [facility] Last Admin: 10/12/18 10:24 Dose: 40 mg - Objective Vital Signs: Vital Signs Temperature 98.3 F 10/12/18 14:00 Pulse Rate 48 L 10/12/18 14:00 Respiratory Rate 18 10/12/18 14:00 Blood Pressure 143/50 L 10/12/18 14:00 O2 Sat by Pulse Oximetry (%) 97 10/11/18 21:00 Constitutional: Yes: No Distress, Calm Cardiovascular: Yes: S1, S2 Respiratory: Yes: Regular, CTA Bilaterally Gastrointestinal: Yes: Normal Bowel Sounds, Soft Musculoskeletal: Yes: WNL Extremities: Yes: WNL Neurological: Yes: Alert, Oriented Psychiatric: Yes: Alert, Oriented Labs: CBC, BMP 10/11/18 06:00 10/11/18 06:00 INR, PTT INR 1.99 (0.82-1.09) H 10/10/18 15:50 Assessment/Plan Problem List - Problems (1) Diastolic dysfunction Code(s): I51.89 - OTHER ILL-DEFINED HEART DISEASES (2) Hypertensive heart disease Code(s): I11.9 - HYPERTENSIVE HEART DISEASE WITHOUT HEART FAILURE Qualifiers: Heart failure presence: without heart failure Qualified Code(s): I11.9 - Hypertensive heart disease without heart failure (3) Afib Code(s): I48.91 - UNSPECIFIED ATRIAL FIBRILLATION Qualifiers: Atrial fibrillation type: persistent Qualified Code(s): I48.1 - Persistent atrial fibrillation (4) Bradycardia Code(s): R00.1 - BRADYCARDIA, UNSPECIFIED (5) Syncope Code(s): R55 - SYNCOPE AND COLLAPSE Qualifiers: Syncope type: unspecified Qualified Code(s): R55 - Syncope and collapse (6) Chronic anticoagulation Code(s): Z79.01 - HALF-WAY (CURRENT) USE OF ANTICOAGULANTS plan will await for the cx report will hold of on abx rest as per the team and cardio
--- NOTE | 2018-10-12 18:07 | PN ---
Progress Note, Physician - Current Medication List Current Medications: Active Medications Acetaminophen (Tylenol -) 650 mg PO Q6H PRN PRN Reason: PAIN Last Admin: 10/11/18 21:45 Dose: 650 mg Amlodipine Besylate (Norvasc -) 5 mg PO DAILY [facility] Last Admin: 10/12/18 10:24 Dose: 5 mg Apixaban (Eliquis -) 5 mg PO BID [facility] Last Admin: 10/12/18 10:24 Dose: 5 mg Lisinopril (Prinivil) 40 mg PO DAILY [facility] Last Admin: 10/12/18 10:24 Dose: 40 mg - Objective Vital Signs: Vital Signs Temperature 98.3 F 10/12/18 14:05 Pulse Rate 95 H 10/12/18 14:05 Respiratory Rate 18 10/12/18 14:05 Blood Pressure 133/72 10/12/18 14:05 O2 Sat by Pulse Oximetry (%) 94 L 10/12/18 09:00 Constitutional: Yes: No Distress HENT: Yes: Atraumatic Neck: Yes: Supple Cardiovascular: Yes: Regular Rate and Rhythm Respiratory: Yes: CTA Bilaterally Gastrointestinal: Yes: Normal Bowel Sounds Extremities: Yes: WNL Edema: No Peripheral Pulses WNL: Yes Neurological: Yes: Alert, Oriented Labs: CBC, BMP 10/11/18 06:00 10/11/18 06:00 INR, PTT INR 1.99 (0.82-1.09) H 10/10/18 15:50 Problem List - Problems (1) Afib Assessment/Plan: on meds monitor cardiology on board on Code(s): I48.91 - UNSPECIFIED ATRIAL FIBRILLATION Qualifiers: Atrial fibrillation type: persistent Qualified Code(s): I48.1 - Persistent atrial fibrillation (2) Bradycardia Assessment/Plan: monitor Code(s): R00.1 - BRADYCARDIA, UNSPECIFIED (3) Chronic anticoagulation Code(s): Z79.01 - MATERIAL LOADER (CURRENT) USE OF ANTICOAGULANTS (4) Diastolic dysfunction Code(s): I51.89 - OTHER ILL-DEFINED HEART DISEASES (5) Hypertensive heart disease Code(s): I11.9 - HYPERTENSIVE HEART DISEASE WITHOUT HEART FAILURE Qualifiers: Heart failure presence: without heart failure Qualified Code(s): I11.9 - Hypertensive heart disease without heart failure (6) Syncope Code(s): R55 - SYNCOPE AND COLLAPSE Qualifiers: Syncope type: unspecified Qualified Code(s): R55 - Syncope and collapse (7) UTI (urinary tract infection) Assessment/Plan: on abx cxs pending Code(s): N39.0 - URINARY TRACT INFECTION, SITE NOT SPECIFIED
[2018-10-12] MEDS: ACETAMINOPHEN 325 MG TABLET (FP) PO PRN (21:38)
[2018-10-13 07:01] LABS: ALBUMIN 3.1 g/dl (3.4-5.0); BILIRUBIN,TOTAL 1.4 mg/dL (0.2-1); BLOOD UREA NITROGEN 16.8 mg/dL (7-18); CALCIUM 8.8 mg/dL (8.5-10.1); POTASSIUM 4.1 mmol/L (3.5-5.1); TOT PROT 5.8 g/dl (6.4-8.2)
[2018-10-13] MEDS: amLODIPine BESYLATE 5 MG TABLET (FP) PO SCH (10:20)
[2018-10-13] MEDS: APIXABAN 5 MG TABLET PO SCH ×2 (10:21→21:34)
[2018-10-13] MEDS: LISINOPRIL 20 MG TABLET (FP) PO SCH (10:21)
--- NOTE | 2018-10-13 11:12 | PN ---
Progress Note, Physician History of Present Illness: Denies recurrent near or true syncope. Await HR recovery off catapres patch. Allergies: Gluten, Sulfa, Epinephrine PCP: Dr. Mackay Cardiologists: Dr. Kaye - Current Medication List Current Medications: Active Medications Acetaminophen (Tylenol -) 650 mg PO Q6H PRN PRN Reason: PAIN Last Admin: 10/12/18 21:38 Dose: 650 mg Amlodipine Besylate (Norvasc -) 5 mg PO DAILY [facility] Last Admin: 10/13/18 10:20 Dose: 5 mg Apixaban (Eliquis -) 5 mg PO BID [facility] Last Admin: 10/13/18 10:21 Dose: 5 mg Lisinopril (Prinivil) 40 mg PO DAILY [facility] Last Admin: 10/13/18 10:21 Dose: 40 mg - Objective Vital Signs: Vital Signs Temperature 99.0 F 10/13/18 05:49 Pulse Rate 60 10/13/18 05:49 Respiratory Rate 20 10/13/18 05:49 Blood Pressure 170/60 10/13/18 05:49 O2 Sat by Pulse Oximetry (%) 94 L 10/12/18 09:00 Constitutional: Yes: No Distress, Calm Neck: Yes: Supple Cardiovascular: Yes: Bradycardia, Pulse Irregular Respiratory: Yes: Regular, CTA Bilaterally Gastrointestinal: Yes: Normal Bowel Sounds, Soft, Abdomen, Obese Edema: No Labs: CBC, BMP 10/11/18 06:00 10/13/18 05:45 INR, PTT INR 1.99 (0.82-1.09) H 10/10/18 15:50 - ....Imaging EKG: Report Reviewed (Tele: Slow Afib) Problem List - Problems (1) Diastolic dysfunction Code(s): I51.89 - OTHER ILL-DEFINED HEART DISEASES (2) Hypertensive heart disease Code(s): I11.9 - HYPERTENSIVE HEART DISEASE WITHOUT HEART FAILURE Qualifiers: Heart failure presence: without heart failure Qualified Code(s): I11.9 - Hypertensive heart disease without heart failure (3) Afib Code(s): I48.91 - UNSPECIFIED ATRIAL FIBRILLATION Qualifiers: Atrial fibrillation type: persistent Qualified Code(s): I48.1 - Persistent atrial fibrillation (4) Bradycardia Code(s): R00.1 - BRADYCARDIA, UNSPECIFIED (5) Syncope Code(s): R55 - SYNCOPE AND COLLAPSE Qualifiers: Syncope type: unspecified Qualified Code(s): R55 - Syncope and collapse (6) Chronic anticoagulation Code(s): Z79.01 - DOORS PREFITTER (CURRENT) USE OF ANTICOAGULANTS Assessment/Plan 10/12/2018 Echo: Normal LV and RV siz and fxn, mod NUNU, mild-mod MR, mild TR RVSP 40-50 01/19/2018 Echo: Normal LV and RV size and fxn LVEF 65%, normal biatrial sizes, mild TR, tr MR 01/19/2018 ETT: Submaximal HR increased 65-86 SBP 157-194, no chest pain or ST changes 1. Syncope, vasovagal vs sick sinus syndrome 2. Persistent AF on Eliquis with slow HR response 3. Hypertensive heart disease 4. Diastolic dysfunction 5. Acute on chronic kidney injury resolved 6. Demand ischemia 7. Morbid obesity, OSAS suspect PLAN: 1. Catapress has been stopped as it may have caused marked bradycardia. Continue Norvasc 5 mg QD, Lisinopril 40 mg QD, Eliquis 5 mg BID and resume Demadex 10 mg QD as renal fxn at baseline, observe HR recovery off AV martita blockers 2. Troponin have plateaued 3. monitor worker and Holter monitor pending 4. Reviewed records from [facility] as outpatient Air Dispatcher: Ralph Kaye MD ([facility])
--- NOTE | 2018-10-13 12:10 | PN ---
Progress Note, Physician History of Present Illness: Pt seen and examined at bedside. She is awake and alert. She denies shortness of breath. - Current Medication List Current Medications: Active Medications Acetaminophen (Tylenol -) 650 mg PO Q6H PRN PRN Reason: PAIN Last Admin: 10/12/18 21:38 Dose: 650 mg Amlodipine Besylate (Norvasc -) 5 mg PO DAILY [facility] Last Admin: 10/13/18 10:20 Dose: 5 mg Apixaban (Eliquis -) 5 mg PO BID [facility] Last Admin: 10/13/18 10:21 Dose: 5 mg Lisinopril (Prinivil) 40 mg PO DAILY [facility] Last Admin: 10/13/18 10:21 Dose: 40 mg Torsemide (Demadex -) 10 mg PO DAILY [facility] - Objective Vital Signs: Vital Signs Temperature 99.0 F 10/13/18 05:49 Pulse Rate 60 10/13/18 05:49 Respiratory Rate 20 10/13/18 05:49 Blood Pressure 170/60 10/13/18 05:49 O2 Sat by Pulse Oximetry (%) 94 L 10/12/18 09:00 Constitutional: Yes: Calm Eyes: Yes: Conjunctiva Clear HENT: Yes: Atraumatic Cardiovascular: Yes: S1, S2 Respiratory: Yes: CTA Bilaterally Gastrointestinal: Yes: Soft, Abdomen, Obese Genitourinary: Yes: WNL Musculoskeletal: Yes: WNL Edema: Yes Edema: LLE: Trace, RLE: Trace Neurological: Yes: Oriented Psychiatric: Yes: Oriented Labs: CBC, BMP 10/11/18 06:00 10/13/18 05:45 INR, PTT INR 1.99 (0.82-1.09) H 10/10/18 15:50 Problem List - Problems (1) UNIQUE (acute kidney injury) Code(s): N17.9 - ACUTE KIDNEY FAILURE, UNSPECIFIED (2) Afib Code(s): I48.91 - UNSPECIFIED ATRIAL FIBRILLATION Qualifiers: Atrial fibrillation type: persistent Qualified Code(s): I48.1 - Persistent atrial fibrillation (3) Hypertensive heart disease Code(s): I11.9 - HYPERTENSIVE HEART DISEASE WITHOUT HEART FAILURE Qualifiers: Heart failure presence: without heart failure Qualified Code(s): I11.9 - Hypertensive heart disease without heart failure Assessment/Plan Current Medications Generic Name Dose Route Start Last Admin Trade Name Jorge PRN Reason Stop Dose Admin Acetaminophen 650 mg 10/11/18 12:34 10/12/18 21:38 Tylenol - PO 650 mg Q6H PRN Administration PAIN Amlodipine Besylate 5 mg 10/11/18 10:00 10/13/18 10:20 Norvasc - PO 5 mg DAILY [facility] Administration Apixaban 5 mg 10/10/18 22:00 10/13/18 10:21 Eliquis - PO 5 mg BID [facility] Administration Lisinopril 40 mg 10/11/18 10:00 10/13/18 10:21 Prinivil PO 40 mg DAILY [facility] Administration Torsemide 10 mg 10/13/18 12:00 Demadex - PO DAILY [facility] Impression 1. UNIQUE 2. HTN 3. syncope 4. a-fib 5. 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
[2018-10-13] MEDS: TORSEMIDE 10 MG TABLET PO SCH (13:08)
--- NOTE | 2018-10-13 14:20 | PN ---
Progress Note, Physician History of Present Illness: patent doing well no new issues - Current Medication List Current Medications: Active Medications Acetaminophen (Tylenol -) 650 mg PO Q6H PRN PRN Reason: PAIN Last Admin: 10/12/18 21:38 Dose: 650 mg Amlodipine Besylate (Norvasc -) 5 mg PO DAILY [facility] Last Admin: 10/13/18 10:20 Dose: 5 mg Apixaban (Eliquis -) 5 mg PO BID [facility] Last Admin: 10/13/18 10:21 Dose: 5 mg Lisinopril (Prinivil) 40 mg PO DAILY [facility] Last Admin: 10/13/18 10:21 Dose: 40 mg Torsemide (Demadex -) 10 mg PO DAILY [facility] Last Admin: 10/13/18 13:08 Dose: 10 mg - Objective Vital Signs: Vital Signs Temperature 99.0 F 10/13/18 05:49 Pulse Rate 60 10/13/18 05:49 Respiratory Rate 20 10/13/18 05:49 Blood Pressure 170/60 10/13/18 05:49 O2 Sat by Pulse Oximetry (%) 94 L 10/12/18 09:00 Constitutional: Yes: No Distress, Calm Cardiovascular: Yes: S1, S2 Respiratory: Yes: Regular, CTA Bilaterally Gastrointestinal: Yes: Normal Bowel Sounds, Soft Musculoskeletal: Yes: WNL Extremities: Yes: WNL Neurological: Yes: Alert, Oriented Psychiatric: Yes: Alert, Oriented Labs: CBC, BMP 10/11/18 06:00 10/13/18 05:45 INR, PTT INR 1.99 (0.82-1.09) H 10/10/18 15:50 Assessment/Plan Problem List - Problems (1) Diastolic dysfunction Code(s): I51.89 - OTHER ILL-DEFINED HEART DISEASES (2) Hypertensive heart disease Code(s): I11.9 - HYPERTENSIVE HEART DISEASE WITHOUT HEART FAILURE Qualifiers: Heart failure presence: without heart failure Qualified Code(s): I11.9 - Hypertensive heart disease without heart failure (3) Afib Code(s): I48.91 - UNSPECIFIED ATRIAL FIBRILLATION Qualifiers: Atrial fibrillation type: persistent Qualified Code(s): I48.1 - Persistent atrial fibrillation (4) Bradycardia Code(s): R00.1 - BRADYCARDIA, UNSPECIFIED (5) Syncope Code(s): R55 - SYNCOPE AND COLLAPSE Qualifiers: Syncope type: unspecified Qualified Code(s): R55 - Syncope and collapse (6) Chronic anticoagulation Code(s): Z79.01 - CARE HOME (CURRENT) USE OF ANTICOAGULANTS plan no abx continue current mgmt
--- NOTE | 2018-10-13 15:15 | HOL ---
Hook-up date: 2018-10-11 14:46:00 Duration: 24:00:00 Test Indications: ATRIAL FIB W/ SLOW VENTRICULAR Medications: 03908 QRS complexes 133 Ventricular ectopics which represent <1 % of total QRS comp. 2 Supraventricular ectopics which represent <1 % of total QRS comp. * Paced QRS complexs which represent % of total QRS comp. 12 % of Time Classified as Noise VENTRICULAR ECTOPY 130 Isolated 0 Bigeminal Cycles 0 Couplets 0 Runs 0 Beats in Runs * Beats LONGEST at * BPM at :: -- * Beats FASTEST at * BPM at :: -- SUPRAVENTRICULAR ECTOPY 0 Isolated 0 Couplets 0 Runs 0 Beats in Runs * Beats LONGEST at * BPM at :: -- * Beats FASTEST at * BPM at :: -- HEART RATES 26 MIN at 19:08:39 2018-10-11 47 AVG 94 MAX at 08:01:35 2018-10-12 LONGEST RR 3.456 secs at 14:31:17 2018-10-12 SCANNED BY ONOFRE CHAN ON 10/13/18 1. Baseline afib with slow ventricular response. Avg HR 47 with range 26-94. 2. Frequent pauses longer than 3 seconds throughout the monitoring period, longest was 3.45 seconds. 3. Rare pvcs. 4. No vt, vf. 5. No diary submitted. Confirmed by SAMRA VASQUEZ, WILBER ([id number]) on 10/13/2018 3:15:20 PM Referred By: JENNIFER CHANEL DR Overread By: WILBER CABRALES MD
--- NOTE | 2018-10-13 18:02 | PN ---
Progress Note, Physician - Current Medication List Current Medications: Active Medications Acetaminophen (Tylenol -) 650 mg PO Q6H PRN PRN Reason: PAIN Last Admin: 10/12/18 21:38 Dose: 650 mg Amlodipine Besylate (Norvasc -) 5 mg PO DAILY [facility] Last Admin: 10/13/18 10:20 Dose: 5 mg Apixaban (Eliquis -) 5 mg PO BID [facility] Last Admin: 10/13/18 10:21 Dose: 5 mg Colchicine (Colcrys) 0.6 mg PO DAILY [facility] Lisinopril (Prinivil) 40 mg PO DAILY [facility] Last Admin: 10/13/18 10:21 Dose: 40 mg Torsemide (Demadex -) 10 mg PO DAILY [facility] Last Admin: 10/13/18 13:08 Dose: 10 mg - Objective Vital Signs: Vital Signs Temperature 99.4 F 10/13/18 14:00 Pulse Rate 47 L 10/13/18 14:00 Respiratory Rate 20 10/13/18 14:00 Blood Pressure 117/48 L 10/13/18 14:00 O2 Sat by Pulse Oximetry (%) 95 10/13/18 09:00 Constitutional: Yes: No Distress HENT: Yes: Atraumatic Neck: Yes: Supple Cardiovascular: Yes: Regular Rate and Rhythm Respiratory: Yes: CTA Bilaterally Gastrointestinal: Yes: Normal Bowel Sounds Extremities: Yes: Other (L big toe warm and inflammed....gout) Edema: LLE: 1+, RLE: 1+ Neurological: Yes: Alert, Oriented Labs: CBC, BMP 10/11/18 06:00 10/13/18 05:45 INR, PTT INR 1.99 (0.82-1.09) H 10/10/18 15:50 Problem List - Problems (1) Afib Assessment/Plan: on meds monitor cardiology on board on Code(s): I48.91 - UNSPECIFIED ATRIAL FIBRILLATION Qualifiers: Atrial fibrillation type: persistent Qualified Code(s): I48.1 - Persistent atrial fibrillation (2) Bradycardia Assessment/Plan: monitor Code(s): R00.1 - BRADYCARDIA, UNSPECIFIED (3) Chronic anticoagulation Code(s): Z79.01 - ALF (CURRENT) USE OF ANTICOAGULANTS (4) Diastolic dysfunction Code(s): I51.89 - OTHER ILL-DEFINED HEART DISEASES (5) Hypertensive heart disease Code(s): I11.9 - HYPERTENSIVE HEART DISEASE WITHOUT HEART FAILURE Qualifiers: Heart failure presence: without heart failure Qualified Code(s): I11.9 - Hypertensive heart disease without heart failure (6) Syncope Code(s): R55 - SYNCOPE AND COLLAPSE Qualifiers: Syncope type: unspecified Qualified Code(s): R55 - Syncope and collapse (7) HTN (hypertension) Assessment/Plan: onmeds bp high monitor Code(s): I10 - ESSENTIAL (PRIMARY) HYPERTENSION (8) UNIQUE (acute kidney injury) Assessment/Plan: cr wnl started on diuretics Code(s): N17.9 - ACUTE KIDNEY FAILURE, UNSPECIFIED (9) UTI (urinary tract infection) Assessment/Plan: cxs normal danika Code(s): N39.0 - URINARY TRACT INFECTION, SITE NOT SPECIFIED (10) Gout attack Assessment/Plan: will start her on colchicine Code(s): M10.9 - GOUT, UNSPECIFIED
[2018-10-13] MEDS: COLCHICINE 0.6 MG CAP PO SCH (18:19)
[2018-10-13] MEDS: ACETAMINOPHEN 325 MG TABLET (FP) PO PRN (21:34)
[2018-10-14 07:16] LABS: BLOOD UREA NITROGEN 18.3 mg/dL (7-18); CALCIUM 8.8 mg/dL (8.5-10.1); CREATININE 1.1 mg/dL (0.55-1.3); POTASSIUM 4.3 mmol/L (3.5-5.1); URIC ACID 7.3 mg/dL (2.6-7.2)
[2018-10-14] MEDS ORDERED: PT OWN MED DRAWER 7, Y5N ONE (09:58)
[2018-10-14 10:14] VITALS: BP 158/65; PULSE 50; TEMP 98.4
[2018-10-14] MEDS: COLCHICINE 0.6 MG CAP PO SCH (10:15)
[2018-10-14] MEDS: LISINOPRIL 20 MG TABLET (FP) PO SCH (10:15)
[2018-10-14] MEDS: amLODIPine BESYLATE 5 MG TABLET (FP) PO SCH (10:16)
[2018-10-14] MEDS: APIXABAN 5 MG TABLET PO SCH (10:16)
[2018-10-14] MEDS: TORSEMIDE 10 MG TABLET PO SCH (10:17)
--- NOTE | 2018-10-14 10:46 | PN ---
Progress Note, Physician History of Present Illness: Denies recurrent near or true syncope. Await HR recovery off catapres patch. Allergies: Gluten, Sulfa, Epinephrine PCP: Dr. Mackay Cardiologists: Dr. Kaye - Objective Vital Signs: Vital Signs Temperature 98.4 F 10/14/18 10:05 Pulse Rate 50 L 10/14/18 10:05 Respiratory Rate 19 10/14/18 10:05 Blood Pressure 158/65 10/14/18 10:05 O2 Sat by Pulse Oximetry (%) 95 10/13/18 09:00 Labs: CBC, BMP 10/11/18 06:00 10/14/18 05:50 INR, PTT INR 1.99 (0.82-1.09) H 10/10/18 15:50 Problem List - Problems (1) Diastolic dysfunction Code(s): I51.89 - OTHER ILL-DEFINED HEART DISEASES (2) Hypertensive heart disease Code(s): I11.9 - HYPERTENSIVE HEART DISEASE WITHOUT HEART FAILURE Qualifiers: Heart failure presence: without heart failure Qualified Code(s): I11.9 - Hypertensive heart disease without heart failure (3) Afib Code(s): I48.91 - UNSPECIFIED ATRIAL FIBRILLATION Qualifiers: Atrial fibrillation type: persistent Qualified Code(s): I48.1 - Persistent atrial fibrillation (4) Bradycardia Code(s): R00.1 - BRADYCARDIA, UNSPECIFIED (5) Syncope Code(s): R55 - SYNCOPE AND COLLAPSE Qualifiers: Syncope type: unspecified Qualified Code(s): R55 - Syncope and collapse (6) Chronic anticoagulation Code(s): Z79.01 - DETENTION (CURRENT) USE OF ANTICOAGULANTS Assessment/Plan 10/12/2018 Holter: Slow afib avg 47 range 26-94 freq pauses longest 3.45 sec, no VT/VF 10/12/2018 Echo: Normal LV and RV siz and fxn, mod NUNU, mild-mod MR, mild TR RVSP 40-50 01/19/2018 Echo: Normal LV and RV size and fxn LVEF 65%, normal biatrial sizes, mild TR, tr MR 01/19/2018 ETT: Submaximal HR increased 65-86 SBP 157-194, no chest pain or ST changes 1. Syncope, vasovagal vs sick sinus syndrome 2. Persistent AF on Eliquis with slow HR response 3. Hypertensive heart disease 4. Diastolic dysfunction 5. Acute on chronic kidney injury resolved 6. Demand ischemia 7. Morbid obesity, OSAS suspect PLAN: 1. Catapress has been stopped as it may have caused marked bradycardia. Increased Norvasc 10 mg QD, Lisinopril 40 mg QD, Eliquis 5 mg BID and resume Demadex 10 mg QD as renal fxn at baseline, observe HR recovery off AV martita blockers 2. Troponin have plateaued 3. nurse monitoring and Holter monitor pending 4. Reviewed records from [facility], [facility] as outpatient First Coat Operator: Ralph Kaye MD ([facility])
--- NOTE | 2018-10-14 16:41 | DS ---
Physical Examination Vital Signs: Vital Signs Temperature 98.4 F 10/14/18 10:05 Pulse Rate 50 L 10/14/18 10:05 Respiratory Rate 19 10/14/18 10:05 Blood Pressure 158/65 10/14/18 10:05 O2 Sat by Pulse Oximetry (%) 95 10/14/18 09:00 Constitutional: Yes: No Distress HENT: Yes: Atraumatic Cardiovascular: Yes: Regular Rate and Rhythm Respiratory: Yes: CTA Bilaterally Gastrointestinal: Yes: Normal Bowel Sounds Extremities: Yes: WNL Edema: No Neurological: Yes: Alert, Oriented Labs: CBC, BMP 10/11/18 06:00 10/14/18 05:50 Discharge Summary Reason For Visit: A-FIB, BRADYCAROIA, SYNCOPE Condition: Good - Instructions Diet, Activity, Other Instructions: see your doctor in 2-3 days check cmp 1 week Referrals: Santos Soria MD [Emergency Provider] - Jose Rafael Ortiz MD [Staff Physician] - Nilson Smith MD [Staff Physician] - Disposition: HOME - Home Medications Comprehensive Discharge Medication List: Ambulatory Orders Amlodipine Besylate 5 mg PO DAILY 10/10/18 Apixaban [Eliquis] 5 mg PO BID 10/10/18 Lisinopril [Prinivil -] 40 mg PO DAILY 10/10/18 Torsemide [Demadex -] 10 mg PO DAILY 10/10/18 Colchicine [Colcrys] 0.6 mg PO DAILY #14 cap 10/13/18
== END 2018-10-14 10:32 | disposition home or self-care (01) | DRG 683 ==
LOC: FER 14:15 → J4W 21:43 → FER 10-11 00:06
PROVIDERS: ADMIT Internal Medicine; ATTEND Internal Medicine
DX: N17.9 Acute kidney failure, unspecified (principal); I48.1 Persistent atrial fibrillation; I24.8 Other forms of acute ischemic heart disease; I12.9 Hypertensive chronic kidney disease with stage 1 through stage 4 chronic kidney disease, or unspecified chronic kidney disease; E66.01 Morbid (severe) obesity due to excess calories; R00.1 Bradycardia, unspecified; R55 Syncope and collapse; N18.9 Chronic kidney disease, unspecified; Z79.01 Long term (current) use of anticoagulants; M10.9 Gout, unspecified; Z68.38 Body mass index [BMI] 38.0-38.9, adult; I51.89 Other ill-defined heart diseases
CPT/HCPCS: 36415; 70450-TC; 71045-TC-FY; 72100-TC-FY; 76775-TC; 80048; 80053; 81003; 82550; 84484; 84550; 85025; 85610; 87086; 93005; 93225; 93226; 93306-TC; 99285-25; J7030

== ENCOUNTER 2019-01-31 18:26 | Observation (INO) | payer OTHER, BC ==
[2019-01-31 19:06] VITALS: BMI 35.4
[2019-01-31 19:53] LABS: BASO % 0.8 % (0-2.0); EOS % 0.3 % (0-4.5); LYMPH % 16.8 % (8-40); MCH 33.8 pg (25.7-33.7); MCHC 33.4 g/dl (32.0-36.0); MEAN CELL VOLUME 101.2 fl (80-96); MEAN PLT VOLUME 10.8 fl (7.5-11.1); MONO % 6.2 % (3.8-10.2); NEUT % 75.9 % (42.8-82.8); PLATELET COUNT 161 K/MM3 (134-434); RBC 3.85 M/mm3 (3.60-5.2); RDW 12.1 % (11.6-15.6); WHITE BLOOD COUNT 8.7 K/mm3 (4.0-10.8)
[2019-01-31 20:06] LABS: ALBUMIN 4.1 g/dl (3.4-5.0); BILIRUBIN,TOTAL 1.5 mg/dl (0.2-1); CALCIUM 9.5 mg/dl (8.5-10); TOT PROT 6.7 g/dl (6.4-8.2)
[2019-01-31 20:07] LABS: EPITHELIAL CELLS MODERATE /hpf
[2019-01-31 20:19] LABS: POTASSIUM 4.4 mmol/L (3.5-5.1)
[2019-01-31] MEDS ORDERED: CEFTRIAXONE 1,000 MG in DEXTROSE 5%-WATER - 50 ML IVPB ONE (20:55)
--- NOTE | 2019-01-31 20:59 | PDOC ---
Documentation entered by Renny Wallace SCRIBE, acting as scribe for Keshia Colón MD. Keshia Colón MD: This documentation has been prepared by the Rodrigo muñoz Aiswarya, SCRIBE, under my direction and personally reviewed by me in its entirety. I confirm that the documentation accurately reflects all work, treatment, procedures, and medical decision making performed by me. History of Present Illness - General Chief Complaint: Shortness of Breath Stated Complaint: SHORTNESS OF BREATH,INTERMITTENT DIZZINESS Time Seen by Provider: 01/31/19 19:08 History Source: Patient Exam Limitations: No Limitations - History of Present Illness Initial Comments: 01/31/19 20:06 The patient is a 73 year old female, with a significant PMH of CHF and HTN, presents to the emergency department with SOB that began 1 month ago. The patient states she had pacemaker insertion on December 26and since then endorses associated symptoms of sob and dizziness that progressively worsened today. She reports pain is exacerbated in a sitting position and is alleviated when putting her head between her knees. The patient denies chest pain and headache.Denies fever, chills, nausea, vomit, diarrhea and constipation.Denies dysuria, frequency, urgency and hematuria. PAST MEDICAL HISTORY: CHF and HTN PAST SURGICAL HISTORY: pacemaker FAMILY HISTORY: no pertinent history SOCIAL HISTORY: Pt lives with family and is employed. MEDICATIONS: reviewed ALLERGIES: As per nursing notes Adult ROS General: No fevers or chills, no weakness, no weight loss HEENT: No change in vision. No sore throat,. No ear pain CardioVascular: +Sob. No chest pain. Respiratory:No cough, or wheezing. Gastrointestinal: no nausea, vomiting, diarrhea or constipation, No rectal bleeding Genitourinary: No dysuria, hematuria, or frequency Musculoskeletal: No joint or muscle pain or swelling Neurologic: +dizziness. No headache, vertigo or loss of consciousness Psychiatric: nor depression Skin: No rashes or easy bruising Endocrine: no increased thirst or abnormal weight change Allergic: no skin or latex allergy All other systems reviewed and normal Adult Exam: General: +obeses. Well-nourished well-developed individual, no acute distress HEENT: Throat: Normal, tonsils normal, no erythema or exudate Neck: Supple, no meningeal signs, no lymphadenopathy Eyes::Pupils equal reactive and round, extraocular motion intact Chest: Nontender to palpation Cardiac: S1-S2 normal, regular rate and rhythm, no murmurs rubs or gallops Respiratory: Lungs clear to auscultation bilateral Abdomen: Soft, nondistended, normal bowel sounds, nontender to palpation diffusely Extremities: +bilateral 1+ edema lower extremity. Skin: No rashes Neuro: Alert and oriented x3, nonfocal exam, grossly intact, normal gait Psych: Normal mood and affect 01/31/19 20:56 Assessment and plan: This is a 73-year-old female who comes in complaining of approximately 10 days of increasing dyspnea associated with some lightheadedness with exertion primarily. Patient denies any chest pain, nausea , diaphoresis, cough, congestion, recent illness. Work-up initiated including CBC, comp, BMP, d-dimer, chest x-ray, EKG, UA 01/31/19 20:57 EKG shows paced rhythm at 69 Chest x-ray shows pacemaker no acute pathology Patient's d-dimer is elevated at 970 Patient's increasing dyspnea as well as her elevated d-dimer and lightheadedness may be her anginal equivalent. Patient's troponin is measurable at 0.05 which is the upper limit of normal. Patient will be admitted to a telemetry bed for dyspnea rule out ACS, urinary tract infection Past History - Past Medical History Allergies/Adverse Reactions: Allergies Allergy/AdvReac Type Severity Reaction Status Date / Time gluten Allergy Unknown Verified 01/31/19 18:33 Sulfa (Sulfonamide Allergy Unknown Verified 01/31/19 18:33 Antibiotics) epinephrine AdvReac Mild Verified 01/31/19 18:33 Home Medications: Ambulatory Orders Apixaban [Eliquis] 5 mg PO BID 10/10/18 Torsemide [Demadex -] 10 mg PO BID 10/10/18 Clonidine HCl 0.2 mg PO DAILY 01/31/19 Colchicine [Colcrys] 0.6 mg PO BID 01/31/19 Lisinopril [Prinivil -] 40 mg PO DAILY 01/31/19 Nifedipine [Adalat cc] 60 mg PO DAILY 01/31/19 Cardiac Disorders: Yes (A-FIB, BRADYCARDIA) COPD: No CHF: Yes HTN: Yes - Surgical History Cardiac Surgery: Yes (LOOP MONITOR, PPM) - Psycho Social/Smoking Cessation Hx Smoking History: Never smoked Have you smoked in the past 12 months: No Information on smoking cessation initiated: No Hx Alcohol Use: No Drug/Substance Use Hx: No Substance Use Type: None Hx Substance Use Treatment: No *Physical Exam - Vital Signs Last Vital Signs Temp Pulse Resp BP Pulse Ox 97.7 F 70 16 118/56 L 100 01/31/19 18:29 01/31/19 18:29 01/31/19 18:29 01/31/19 18:29 01/31/19 18:29 ED Treatment Course - LABORATORY CBC & Chemistry Diagram: 01/31/19 19:45 01/31/19 19:45 - ADDITIONAL ORDERS Additional order review: Laboratory Results 01/31/19 01/31/19 01/31/19 19:45 19:45 19:45 Sodium 135 L Potassium 4.4 Chloride 108 H Carbon Dioxide 21 Anion Gap 6 L BUN 48.0 H Creatinine 2.0 H Est GFR (CKD-EPI)AfAm 28.00 Est GFR (CKD-EPI)NonAf 24.16 Random Glucose 109 H Calcium 9.5 Total Bilirubin 1.5 H AST 31 ALT 12 L Alkaline Phosphatase 94 Creatine Kinase 113 Troponin I 0.05 B-Natriuretic Peptide 970.9 H Total Protein 6.7 Albumin 4.1 Urine Color Urine Appearance Urine pH Urine Protein Urine Glucose (UA) Urine Ketones Urine Blood Urine Nitrite Urine Bilirubin Urine Urobilinogen Ur Leukocyte Esterase Urine RBC Urine WBC Ur Transition Epith Cell Urine Bacteria 01/31/19 19:42 Sodium Potassium Chloride Carbon Dioxide Anion Gap BUN Creatinine Est GFR (CKD-EPI)AfAm Est GFR (CKD-EPI)NonAf Random Glucose Calcium Total Bilirubin AST ALT Alkaline Phosphatase Creatine Kinase Troponin I B-Natriuretic Peptide Total Protein Albumin Urine Color Yellow Urine Appearance Slightly Urine pH 5.0 Urine Protein 1+ H Urine Glucose (UA) Negative Urine Ketones Trace Urine Blood Negative Urine Nitrite Negative Urine Bilirubin 1+ H Urine Urobilinogen 0.2 Ur Leukocyte Esterase 1+ Urine RBC 2-5 Urine WBC 20-40 Ur Transition Epith Cell Moderate Urine Bacteria Moderate 01/31/19 19:45 RBC 3.85 MCV 101.2 H MCHC 33.4 RDW 12.1 D MPV 10.8 Neutrophils % 75.9 Lymphocytes % 16.8 Monocytes % 6.2 Eosinophils % 0.3 Basophils % 0.8 - RADIOLOGY Radiology Studies Ordered: Category Date Time Status CHEST X-RAY PORTABLE* [RAD] Stat Radiology 01/31/19 19:19 Completed Discharge - Discharge Information Problems reviewed: Yes Clinical Impression/Diagnosis: Cystitis Dyspnea Qualifiers: Dyspnea type: shortness of breath Qualified Code(s): R06.02 - Shortness of breath; R06.00 - Dyspnea, unspecified; R06.01 - Orthopnea Condition: Fair - Admission Yes - Follow up/Referral Referrals: Veto Mackay MD [Primary Care Provider] - - Patient Discharge Instructions - Post Discharge Activity
[2019-01-31] MEDS ORDERED: cefTRIAXone SODIUM 1 GM VIAL ONE (21:02)
--- NOTE | 2019-01-31 21:12 | HP ---
CHIEF COMPLAINT: Shortness of breath PCP: Dr. Veto Mackay Cardiology: Dr. Kaye HISTORY OF PRESENT ILLNESS: 73 year-old female with a PMH significant for HTN, atrial fibrillation on Eliquis s/p PPM, diastolic heart failure, hypothyroidism, and gout. Patient presented to the ED for evaluation of shortness of breath x 1 month. Patient had a PPM placed on 12/26/18. About a week later she started experiencing shortness of breath walking very short distances. These episdodes have increased in frequency, in past week occurring several times per day. Patient has also been experiencing episodes of lightheadedness and dizziness, sometimes associated with walking, sometimes occurring at rest while just sitting on the couch. The lightheadedness is then usually followed by facial flushing and facial sweatiness. Patient denies chest pain. She has occasional palpitations. She denies lower extremity edema different from chronic baseline; denies orthopnea; denies cough; denies fever, sweats, chills. 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 Smoking: never Alcohol: no Drugs: no Allergies gluten Allergy (Unknown, Verified 01/31/19 18:33) Sulfa (Sulfonamide Antibiotics) Allergy (Unknown, Verified 01/31/19 18:33) epinephrine Adverse Reaction (Mild, Verified 01/31/19 18:33) JITTERY HOME MEDICATIONS: Home Medications Medication Instructions Recorded Apixaban [Eliquis] 5 mg PO BID 10/10/18 Torsemide [Demadex -] 10 mg PO BID 10/10/18 Clonidine HCl 0.2 mg PO DAILY 01/31/19 Colchicine [Colcrys] 0.6 mg PO BID 01/31/19 Lisinopril [Prinivil -] 40 mg PO DAILY 01/31/19 Nifedipine [Adalat cc] 60 mg PO DAILY 01/31/19 REVIEW OF SYSTEMS CONSTITUTIONAL: Absent: fever, chills, diaphoresis, generalized weakness, malaise, loss of appetite, weight change HEENT: Absent: rhinorrhea, nasal congestion, throat pain, throat swelling, difficulty swallowing, mouth swelling, ear pain, eye pain, visual changes CARDIOVASCULAR: +lightheadedness, dizziness Absent: chest pain, syncope, palpitations, irregular heart rate, peripheral edema RESPIRATORY: +SOB, HO Absent: cough, orthopnea, wheezing, stridor, hemoptysis GASTROINTESTINAL: Absent: abdominal pain, abdominal distension, nausea, vomiting, diarrhea, constipation, melena, hematochezia GENITOURINARY: Absent: dysuria, frequency, urgency, hesitancy, hematuria, flank pain, genital pain MUSCULOSKELETAL: Absent: myalgia, arthralgia, joint swelling, back pain, neck pain SKIN: Absent: rash, itching, pallor HEMATOLOGIC/IMMUNOLOGIC: Absent: easy bleeding, easy bruising, lymphadenopathy, frequent infections ENDOCRINE: Absent: unexplained weight gain, unexplained weight loss, heat intolerance, cold intolerance NEUROLOGIC: Absent: headache, focal weakness or paresthesias, dizziness, unsteady gait, seizure, mental status changes, bladder or bowel incontinence PSYCHIATRIC: Absent: anxiety, depression, suicidal or homicidal ideation, hallucinations. PHYSICAL EXAMINATION Vital Signs - 24 hr 01/31/19 18:29 Temperature 97.7 F Pulse Rate 70 Respiratory 16 Rate Blood Pressure 118/56 L O2 Sat by Pulse 100 Oximetry (%) GENERAL: Awake, alert, and fully oriented, in no acute distress. HEAD: Normal with no signs of trauma. EYES: Pupils equal, round and reactive to light, extraocular movements intact, sclera anicteric, conjunctiva clear. No lid lag. LUNGS: Breath sounds equal, clear to auscultation bilaterally. No wheezes, and no crackles. No accessory muscle use. HEART: Regular rate and rhythm, normal S1 and S2 ABDOMEN: Soft, nontender, not distended UPPER EXTREMITIES: 2+ pulses, warm, well-perfused. No cyanosis. No clubbing. No peripheral edema. LOWER EXTREMITIES: 2+ pulses, warm, well-perfused. No calf tenderness. No peripheral edema. NEUROLOGICAL: Cranial nerves II-XII intact. Normal speech. Laboratory Results - last 24 hr 01/31/19 01/31/19 01/31/19 19:42 19:45 19:45 WBC RBC Hgb Hct MCV MCH MCHC RDW Plt Count MPV Absolute Neuts (auto) Neutrophils % Lymphocytes % Monocytes % Eosinophils % Basophils % Sodium 135 L Potassium 4.4 Chloride 108 H Carbon Dioxide 21 Anion Gap 6 L BUN 48.0 H Creatinine 2.0 H Est GFR (CKD-EPI)AfAm 28.00 Est GFR (CKD-EPI)NonAf 24.16 Random Glucose 109 H Calcium 9.5 Total Bilirubin 1.5 H AST 31 ALT 12 L Alkaline Phosphatase 94 Creatine Kinase 113 Troponin I 0.05 B-Natriuretic Peptide Total Protein 6.7 Albumin 4.1 Urine Color Yellow Urine Appearance Slightly Urine pH 5.0 Urine Protein 1+ H Urine Glucose (UA) Negative Urine Ketones Trace Urine Blood Negative Urine Nitrite Negative Urine Bilirubin 1+ H Urine Urobilinogen 0.2 Ur Leukocyte Esterase 1+ Urine RBC 2-5 Urine WBC 20-40 Ur Transition Epith Cell Moderate Urine Bacteria Moderate 01/31/19 01/31/19 19:45 19:45 WBC 8.7 RBC 3.85 Hgb 13.0 Hct 39.0 MCV 101.2 H MCH 33.8 H MCHC 33.4 RDW 12.1 D Plt Count 161 MPV 10.8 Absolute Neuts (auto) 6.6 Neutrophils % 75.9 Lymphocytes % 16.8 Monocytes % 6.2 Eosinophils % 0.3 Basophils % 0.8 Sodium Potassium Chloride Carbon Dioxide Anion Gap BUN Creatinine Est GFR (CKD-EPI)AfAm Est GFR (CKD-EPI)NonAf Random Glucose Calcium Total Bilirubin AST ALT Alkaline Phosphatase Creatine Kinase Troponin I B-Natriuretic Peptide 970.9 H Total Protein Albumin Urine Color Urine Appearance Urine pH Urine Protein Urine Glucose (UA) Urine Ketones Urine Blood Urine Nitrite Urine Bilirubin Urine Urobilinogen Ur Leukocyte Esterase Urine RBC Urine WBC Ur Transition Epith Cell Urine Bacteria ASSESSMENT/PLAN: 73 year-old female with a PMH significant for HTN, atrial fibrillation on Eliquis s/p PPM, diastolic heart failure, hypothyroidism, and gout. Placed on observation for shortness of breath. Shortness of breath Dyspnea on exertion --likely multifactorial --pre post evaluation Atrial fibrillation s/p PPM --PPM placed 12/26, patient reports symptoms of SOB and dizziness since 01/04 --serial ECGs show v-pacing; will have PPM interrogated --continue Eliquis --telemetry monitoring Elevated troponin --flat trending, same as on last admission --not indicative of ACS Diastolic heart failure --10/12/18 Echo: LV normal; RV normal; BLAE; mild to moderate MR; mild TR, mild pHTN; mild PI --has been on torsemide 10 BID, sometimes taking every other day --euvolemic to dry on exam, lungs clear, no edema --daily weights --strict I&Os UNIQUE Mild orthostatic hypotension --Cr 2.0 on admission, today 1.7, baseline 1.1, mildly orthostatic; likely low volume state --hold diuretics --gentle IV fluids Hypertension --presently hypotensive, hold clonidine, nifedipine Hypothyroidism --not on meds --TSH pending Gout --continue colchicine FEN Fluids: NS@50mL/hr Electrolytes: replete as indicated Nutrition: low sodium DVT prophylaxis: on Eliquis Physical therapy Dispo: continues to require observation. Full code. Visit type - Emergency Visit Emergency Visit: Yes ED Registration Date: 01/31/19 Care time: The patient presented to the Emergency Department on the above date and was hospitalized for further evaluation of their emergent condition. - New Patient This patient is new to me today: Yes Date on this admission: 02/01/19 - Critical Care Critical Care patient: No
[2019-01-31] MEDS ORDERED: SODIUM CHLORIDE 1,000 ML IV SCH (22:00)
[2019-01-31] MEDS ORDERED: ASPIRIN 325 MG ENTERIC COATED TABLET (FP) PO ONE (22:09)
[2019-01-31] MEDS: COLCHICINE 0.6 MG CAP PO SCH (22:38)
[2019-01-31] MEDS: APIXABAN 5 MG TABLET PO SCH (22:38)
[2019-02-01 07:53] LABS: BASO % 0.7 % (0-2.0); EOS % 1.5 % (0-4.5); HEMATOCRIT 33.6 % (32.4-45.2); HEMOGLOBIN 11.9 GM/dl (10.7-15.3); LYMPH % 30.5 % (8-40); MCHC 35.3 g/dl (32.0-36.0); MEAN PLT VOLUME 10.9 fl (7.5-11.1); MONO % 9.5 % (3.8-10.2); NEUT % 57.8 % (42.8-82.8); PLATELET COUNT 126 K/MM3 (134-434); RBC 3.39 M/mm3 (3.60-5.2); RDW 11.7 % (11.6-15.6); WHITE BLOOD COUNT 6.3 K/mm3 (4.0-10.8)
[2019-02-01 07:54] LABS: INR 1.65 (0.82-1.09); PROTHROMBIN TIME (PATIENT) 18.3 SEC (10.2-13.0)
[2019-02-01 07:56] LABS: ALBUMIN 3.5 g/dl (3.4-5.0); BILIRUBIN,TOTAL 0.8 mg/dl (0.2-1); CALCIUM 9.1 mg/dl (8.5-10); CREATININE 1.7 mg/dl (0.55-1.3); MAGNESIUM 1.8 mg/dL (1.8-2.4); PHOSPHOROUS 3.8 mg/dl (2.5-4.9); POTASSIUM 4.7 mmol/L (3.5-5.1); TOT PROT 5.8 g/dl (6.4-8.2)
[2019-02-01] MEDS ORDERED: cloNIDine HCL 0.1 MG TABLET PO SCH (10:00)
[2019-02-01] MEDS ORDERED: CEFTRIAXONE 1 GM in DEXTROSE 5%-WATER - 50 ML IVPB SCH (10:00)
[2019-02-01] MEDS ORDERED: NIFEdipine E.R 60 MG TABLET (UD) PO SCH (10:00)
[2019-02-01] MEDS ORDERED: ASPIRIN COATED 81 MG TABLET.EC PO SCH (10:00)
[2019-02-01] MEDS: CEFTRIAXONE 1 G/50 ML PREMIX 50 ML IVPB SCH (10:03)
[2019-02-01] MEDS: APIXABAN 5 MG TABLET PO SCH (10:15)
[2019-02-01] MEDS: COLCHICINE 0.6 MG CAP PO SCH (10:15)
--- NOTE | 2019-02-01 10:39 | EKG ---
Test Reason : Blood Pressure : / mmHG Vent. Rate : 069 BPM Atrial Rate : 068 BPM P-R Int : 000 ms QRS Dur : 154 ms QT Int : 438 ms P-R-T Axes : 000 058 049 degrees QTc Int : 469 ms Ventricular-paced rhythm ABNORMAL ECG WHEN COMPARED WITH ECG OF 31-JAN-2019 19:22, NO SIGNIFICANT CHANGE WAS FOUND Confirmed by AMANDA VASQUEZ, TOREY ([id number]) on 02/01/2019 10:39:11 AM Referred By: Shaan BRUNER Confirmed By:TOREY PATEL MD
--- NOTE | 2019-02-01 11:37 | CON.CARD ---
Consult Consult Specialty:: Cardiology Referred by:: Medicine Reason for Consultation:: shortness of breath, lightheadedness - History of Present Illness Chief Complaint: shortness of breath History of Present Illness: 73F h/o hypothyroidism, afib on eliquis, HTN, PPM p/w dyspnea, lightheadedness. Sees Dr. Kaye for cardiology. Had PPM placed in 11/2018 for syncope, had loop monitor which showed a slow heart rate per patient. For the last 2-3 weeks felt short of breath, lightheadedness when standing, walking but also can happen at rest. In ER UA suggested UTI, on abx now, and with UNIQUE. Received IVF. Reportedly had elevated HR to 190s when checking orthostatics, BP okay, no event on tele. - Past Medical History Cardio/Vascular: Yes: AFIB, HTN Gastrointestinal: Yes: Irritable Bowel Disease Rheumatology: Yes: Gout - Alcohol/Substance Use Hx Alcohol Use: No - Smoking History Smoking history: Never smoked Have you smoked in the past 12 months: No Home Medications - Allergies Allergies/Adverse Reactions: Allergies Allergy/AdvReac Type Severity Reaction Status Date / Time gluten Allergy Unknown Verified 01/31/19 18:33 Sulfa (Sulfonamide Allergy Unknown Verified 01/31/19 18:33 Antibiotics) epinephrine AdvReac Mild Verified 01/31/19 18:33 - Home Medications Home Medications: Ambulatory Orders Apixaban [Eliquis] 5 mg PO BID 10/10/18 Torsemide [Demadex -] 10 mg PO BID 10/10/18 Clonidine HCl 0.2 mg PO DAILY 01/31/19 Colchicine [Colcrys] 0.6 mg PO BID 01/31/19 Lisinopril [Prinivil -] 40 mg PO DAILY 01/31/19 Nifedipine [Adalat cc] 60 mg PO HS 01/31/19 Family Medical History Family History: Unremarkable Review of Systems - Review of Systems Constitutional: reports: No Symptoms Eyes: reports: No Symptoms HENT: reports: No Symptoms Neck: reports: No Symptoms Cardiovascular: reports: No Symptoms Respiratory: reports: No Symptoms Gastrointestinal: reports: No Symptoms Musculoskeletal: reports: No Symptoms Integumentary: reports: No Symptoms Neurological: reports: No Symptoms Endocrine: reports: No Symptoms Hematology/Lymphatic: reports: No Symptoms Psychiatric: reports: No Symptoms Vital Signs: Vital Signs Temperature 97.7 F 02/01/19 10:11 Pulse Rate 68 02/01/19 10:11 Respiratory Rate 16 02/01/19 10:11 Blood Pressure 103/41 L 02/01/19 10:11 O2 Sat by Pulse Oximetry (%) 100 02/01/19 08:51 Constitutional: Yes: No Distress, Calm Eyes: Yes: Conjunctiva Clear, EOM Intact HENT: Yes: Atraumatic, Normocephalic Neck: Yes: Supple, Trachea Midline Respiratory: Yes: Regular, CTA Bilaterally Gastrointestinal: Yes: Normal Bowel Sounds, Soft Cardiovascular: Yes: Regular Rate and Rhythm JVD: No Heart Sounds: Yes: S1, S2 Extremities: No: Cold Integumentary: No: Jaundice Neurological: Yes: Alert, Oriented Psychiatric: No: Agitated - Other Data Labs, Other Data: CBC, BMP 02/01/19 07:10 02/01/19 07:10 INR, PTT INR 1.65 (0.82-1.09) H 02/01/19 07:10 Troponin, BNP 01/31/19 01/31/19 02/01/19 19:45 19:45 02:07 Troponin I 0.05 0.07 H B-Natriuretic Peptide 970.9 H 02/01/19 08:05 Troponin I 0.06 H B-Natriuretic Peptide Troponin, BNP 01/31/19 01/31/19 02/01/19 19:45 19:45 02:07 Troponin I 0.05 0.07 H B-Natriuretic Peptide 970.9 H 02/01/19 08:05 Troponin I 0.06 H B-Natriuretic Peptide Assessment/Plan echo 09/2018 nl LV/RV function, mod dilated LA/RA, mild TR, mild to mod MR, RVSP 40-50 mmHg CXR: no acute process EKG: BEAMSTER tele: BEAMSTER shortness of breath, dizziness - CXR no congestion, appears euvolemic to dry - reportedly orthostatics pulse 190s when standing, although not noted on tele - repeat orthostatics - monitoring on tele - echo pending - device interrogation pending s/p PPM - biotronik - device interrogation pending as above Chronic diastolic HF - appears dry to euvolemic - holding torsemide in setting of UNIQUE afib - cont eliquis HTN - cont current meds UNIQUE - likely prerenal, improving with IVF, monitor volume status UTI - manage per primary
--- NOTE | 2019-02-01 11:40 | EKG ---
Test Reason : Blood Pressure : / mmHG Vent. Rate : 069 BPM Atrial Rate : 085 BPM P-R Int : 000 ms QRS Dur : 156 ms QT Int : 446 ms P-R-T Axes : 000 072 047 degrees QTc Int : 477 ms Ventricular-paced rhythm ABNORMAL ECG WHEN COMPARED WITH ECG OF 10-OCT-2018 15:41, ELECTRONIC VENTRICULAR PACEMAKER HAS REPLACED ATRIAL FIBRILLATION Confirmed by AMANDA VASQUEZ, TOREY ([id number]) on 02/01/2019 11:39:54 AM Referred By: DR MATTHEW Confirmed By:TOREY PATEL MD
--- NOTE | 2019-02-01 12:47 | PN ---
Physical Exam: Please see H&P which was done today. Visit type - Emergency Visit Emergency Visit: Yes ED Registration Date: 01/31/19 Care time: The patient presented to the Emergency Department on the above date and was hospitalized for further evaluation of their emergent condition. - New Patient This patient is new to me today: Yes Date on this admission: 02/01/19 - Critical Care Critical Care patient: No
--- NOTE | 2019-02-01 15:16 | ECHO ---
Name: MERCADO, ЕЛЕНА Exam:Adult Echocardiogram Study Date: 02/01/2019 02:15 PM Age: 73 yrs Reason For Study: SOB Height: 68 in Weight: 234 lb BSA: 2.2 m2 MMode/2D Measurements & Calculations IVSd: 1.1 cm Ao root diam: 2.6 cm LVIDd: 4.0 cm LA dimension: 3.8 cm LVIDs: 2.9 cm LVPWd: 1.1 cm EDV(Teich): 68.8 ml LVOT diam: 2.0 cm ESV(Teich): 32.6 ml Doppler Measurements & Calculations MV E max hardeep: 117.3 cm/sec MV dec slope: 562.2 cm/sec2 Ao V2 max: 155.7 cm/sec LV V1 max P.8 mmHg Ao max P.7 mmHg LV V1 max: 130.8 cm/sec KRUNAL(V,D): 2.6 cm2 MR max hardeep: 424.5 cm/sec TR max hardeep: 266.3 cm/sec MR max P.2 mmHg TR max P.6 mmHg PA V2 max: 130.9 cm/sec PI end-d hardeep: 120.4 cm/sec PA max P.8 mmHg Procedure A two-dimensional transthoracic echocardiogram with color flow and Doppler was performed. The study w as technically difficult with many images being suboptimal in quality. Left Ventricle The left ventricular size, thickness and function are normal. The left ventricular ejection fraction is normal. The left ventricular wall motion is normal. Right Ventricle The right ventricle is normal in size and function. There is a pacemaker lead in the right ventricle. Atria Normal left and right atrial size and function. Mitral Valve There is mild mitral valve thickening. There is no mitral valve stenosis. There is mild mitral regurg itation. Tricuspid Valve There is mild tricuspid valve thickening. There is no tricuspid stenosis. There is mild tricuspid regurgitation. Right ventricular systolic pressure is elevated at 30-40mmHg. Aortic Valve The aortic valve is trileaflet. There is mild aortic valve thickening. There is mild aortic sclerosis .;. No hemodynamically significant valvular aortic stenosis. No aortic regurgitation is present. Pulmonic Valve The pulmonic valve is not well visualized. There is no pulmonic valvular stenosis. Mild pulmonic valv ular regurgitation. Great Vessels The aortic root is normal size. Pericardium/Pleura There is no pericardial effusion. Interpretation Summary The left ventricular size, thickness and function are normal The left ventricular ejection fraction is normal. The left ventricular wall motion is normal. There is mild aortic sclerosis.; There is mild aortic valve thickening. There is a pacemaker lead in the right ventricle. The study was technically difficult with many images being suboptimal in quality. There is mild tricuspid regurgitation. Right ventricular systolic pressure is elevated at 30-40mmHg. There is mild mitral regurgitation. MD Wu Lancaster 02/01/2019 03:16 PM
[2019-02-01 20:12] VITALS: PULSE 69
[2019-02-02] MEDS: COLCHICINE 0.6 MG CAP PO SCH ×2 (00:01→08:59)
[2019-02-02] MEDS: APIXABAN 5 MG TABLET PO SCH ×2 (00:01→08:59)
[2019-02-02 06:32] VITALS: BP 133/67; TEMP 98
[2019-02-02 07:58] LABS: CALCIUM 8.9 mg/dl (8.5-10); CREATININE 1.3 mg/dl (0.55-1.3); POTASSIUM 4.4 mmol/L (3.5-5.1)
[2019-02-02 08:29] LABS: MAGNESIUM 1.7 mg/dL (1.8-2.4)
--- NOTE | 2019-02-02 08:51 | DS ---
Physical Exam: SUBJECTIVE: Patient seen and examined OBJECTIVE: Vital Signs Period Temp Pulse Resp BP Sys/Balderrama Pulse Ox Last 24 Hr 97.3 F-98.0 F 68-70 16-18 98-133/41-77 98-100 PHYSICAL EXAM GENERAL: The patient is awake, alert, and fully oriented, in no acute distress. HEAD: Normal with no signs of trauma. EYES: PERRL, extraocular movements intact, sclera anicteric, conjunctiva clear. ENT: Ears normal, nares patent, oropharynx clear without exudates, moist mucous membranes. NECK: Trachea midline, full range of motion, supple. LUNGS: Breath sounds equal, clear to auscultation bilaterally, no wheezes, no crackles, no accessory muscle use. HEART: Regular rate and rhythm, S1, S2 without murmur, rub or gallop. ABDOMEN: Soft, nontender, nondistended, normoactive bowel sounds, no guarding, no rebound, no hepatosplenomegaly, no masses. EXTREMITIES: 2+ pulses, warm, well-perfused, no edema. NEUROLOGICAL: Cranial nerves II through XII grossly intact. Normal speech, gait not observed. PSYCH: Normal mood, normal affect. SKIN: Warm, dry, normal turgor, no rashes or lesions noted. LABS Laboratory Results - last 24 hr 02/01/19 02/01/19 02/01/19 08:05 14:00 14:00 Sodium Potassium Chloride Carbon Dioxide Anion Gap BUN Creatinine Est GFR (CKD-EPI)AfAm Est GFR (CKD-EPI)NonAf Random Glucose Calcium Magnesium TSH 1.92 Ur Random Creatinine 148.8 Ur Random Urea Nitrogn 1257 H 02/02/19 07:28 Sodium 139 Potassium 4.4 Chloride 107 Carbon Dioxide 24 Anion Gap 8 BUN 30.0 H Creatinine 1.3 Est GFR (CKD-EPI)AfAm 47.13 Est GFR (CKD-EPI)NonAf 40.67 Random Glucose 97 Calcium 8.9 Magnesium 1.7 L TSH Ur Random Creatinine Ur Random Urea Nitrogn HOSPITAL COURSE: Date of Admission:01/31/19 Date of Discharge: 02/02/19 Minutes to complete discharge: 35 Discharge Summary Problems reviewed: Yes Reason For Visit: DYSPNEA/ CYSTITIS Current Active Problems Cystitis (Acute) Dyspnea (Acute) Condition: Fair - Instructions Referrals: Veto Mackay MD [Primary Care Provider] - - Home Medications Comprehensive Discharge Medication List: Ambulatory Orders Apixaban [Eliquis] 5 mg PO BID 10/10/18 Torsemide [Demadex -] 10 mg PO BID 10/10/18 Clonidine HCl 0.2 mg PO DAILY 01/31/19 Colchicine [Colcrys] 0.6 mg PO BID 01/31/19 Lisinopril [Prinivil -] 40 mg PO DAILY 01/31/19 Nifedipine [Adalat cc] 60 mg PO HS 01/31/19 This patient is new to me today: No Emergency Visit: Yes ED Registration Date: 01/31/19 Care time: The patient presented to the Emergency Department on the above date and was hospitalized for further evaluation of their emergent condition. Critical Care patient: No - Discharge Referral Referred to [facility] Med P.[facility] No
[2019-02-02] MEDS ORDERED: MAGNESIUM OXIDE 400 MG TABLET (FP) PO ONE (09:00)
[2019-02-02] MEDS: CEFTRIAXONE 1 G/50 ML PREMIX 50 ML IVPB SCH (09:00)
[2019-02-02] MEDS ORDERED: ACETAMINOPHEN 325 MG TABLET (FP) PO ONE (13:15)
== END 2019-02-02 14:00 | disposition home or self-care (01) ==
LOC: FER 18:26 → FM/S 21:38 → UNDOADMOB 21:38 → INTOOBSV 21:38 → FM/S 21:54
PROVIDERS: ADMIT Internal Medicine; ATTEND Nurse Practitioner Acute Care
PROC: 3E03329 Introduction of Other Anti-infective into Peripheral Vein, Percutaneous Approach (ICD-10-PCS; principal; 2019-01-31)
PROC: 3E0337Z Introduction of Electrolytic and Water Balance Substance into Peripheral Vein, Percutaneous Approach (ICD-10-PCS; 2019-01-31)
DX: N30.90 Cystitis, unspecified without hematuria (principal); I11.0 Hypertensive heart disease with heart failure; I50.30 Unspecified diastolic (congestive) heart failure; I48.91 Unspecified atrial fibrillation; E03.9 Hypothyroidism, unspecified; M19.90 Unspecified osteoarthritis, unspecified site; M10.9 Gout, unspecified; K58.9 Irritable bowel syndrome, unspecified; N17.9 Acute kidney failure, unspecified; E66.01 Morbid (severe) obesity due to excess calories; Z68.30 Body mass index [BMI] 30.0-30.9, adult; Z79.01 Long term (current) use of anticoagulants; Z88.2 Allergy status to sulfonamides; Z88.8 Allergy status to other drugs, medicaments and biological substances; Z95.0 Presence of cardiac pacemaker
CPT/HCPCS: 36415; 71045-TC-FY; 80048; 80053; 81003; 81015; 82550; 82565; 83735; 83880; 84100; 84443; 84484; 84540; 85025; 85379; 85610; 85730; 87086; 93005; 93306-TC; 96361; 96365; 96375; 97116-GP; 97162-GP; 99285-25; G0378; J7030